=== PATIENT | female | born 1950 | race Caucasian/White ===

== ENCOUNTER 2019-12-15 14:32 | Outpatient (CLI) | payer MEDICARE, OTHER, SELFPAY ==
--- NOTE | 2019-12-15 14:42 | MM_ITS ---
WS: [id number] BILATERAL DIGITAL SCREENING MAMMOGRAPHY WITH CAD CLINICAL INFORMATION: SCREENING HISTORY: Screening mammogram. No current complaints. COMPARISON: August 20, 2017 TECHNIQUE: Bilateral CC and MLO views. FINDINGS: The breasts are composed of heterogeneous fibroglandular density tissue, which can limit the detectio n of small underlying mass lesions. No suspicious mass, asymmetry, calcifications, or architectural d istortion. No evidence of malignancy. Stable punctate calcifications MM/[place] [id number] IMPRESSION: BI-RADS: 2-Benign FOLLOW UP: 1 Year Follow-up Recommend return to annual screening mammography.
--- NOTE | 2019-12-15 15:36 | XR_ITS ---
WS: [id number] DEXA (DUAL ENERGY X-RAY ABSORPTIOMETRY) Bone mineral density was performed using a [employer] machine. HISTORY: ASYMPTOMATIC POST MENOPAUSAL COMPARISON: 08/20/2017 Total hip BMD: Left: 0.995 g/cm2. T score: -0.1 Z score: 0.9 Right: 0.962 g/cm2. T score: -0.4 Z score: 0.6 10 year probability of a major osteoporotic fracture is 9%. Compared to the prior study from 08/20/2017. Bilateral hips bone mineral density has decreased by 0.4%. XR/XR DEXA axial skeleton* [id number] IMPRESSION: NORMAL BONE MINERAL DENSITY based upon the WHO classification for females. No significant change within the bone mineral density of the hips since the erik or study.
== END 2019-12-15 14:33 | disposition home or self-care (01) ==
PROVIDERS: PCP Family Medicine; Visit Provider Family Medicine
DX: Z12.31 Encounter for screening mammogram for malignant neoplasm of breast (principal); Z78.0 Asymptomatic menopausal state
CPT/HCPCS: 77067; 77080

== ENCOUNTER 2020-03-01 19:45 | Emergency (ER) | payer MEDICARE, OTHER, SELFPAY ==
[2020-03-01 19:48] VITALS: BP 108/68; PULSE 82; RESP 18; TEMP 36.3; O2SAT 97; BMI 30.7
--- NOTE | 2020-03-01 21:20 | ED_ITS ---
HPI - Abdominal Pain General: Chief Complaint: Abdominal Pain Stated Complaint: abd pain Time Seen by Provider: 03/01/20 20:58 Source: patient Mode of arrival: ambulatory Limitations: no limitations History of Present Illness: HPI narrative: Izabel is a nice 70-year-old female who comes in complaining of a months worth of abdominal pain. She describes diffuse abdominal pain with alternating constipation and diarrhea. He has nausea but no vomiting. She is not noted any fevers or chills. Unaware of anything that makes her pain better or worse. She was seen in urgent care recently for this and was started on Cipro and Flagyl but she stated she stopped taking these because her symptoms were not getting better. She denies any chest pain or shortness of breath. She states she has had similar symptoms in the past and was told she had colitis. Patient has any blood in her stools or black tarry stools. Associated Symptoms: Reports constipation, diarrhea and nausea; Denies chills, coffee ground emesis, GI cramping, dysuria, fever(s), heartburn, hematochezia, hematuria, hematemesis, melena, syncope and vomiting Review of Systems Const: Denies: fever(s), chills, body aches, fatigue, malaise or diaphoresis Eyes: Denies: change in vision, blurry vision, photophobia, eye discomfort, eye discharge, eye redness or yellow eyes ENMT: Denies: throat pain, odynophagia, hoarseness, swelling of lips/tongue, ear or mastoid pain, ear discharge, change in hearing or nasal discharge Card: Denies: chest pain, palpitations, irregular heart rhythm, edema, lightheadedness, syncope, pre-syncope, dyspnea on exertion or orthopnea Resp: Denies: dyspnea, productive cough, non-productive cough, wheezing, hemoptysis or chest congestion GI: Reports: abdominal pain, nausea, diarrhea and constipation; Denies: vomiting, hematemesis, coffee ground emesis, heartburn, GI cramping, hematochezia or melena : Denies: flank pain, dysuria, urinary frequency, urinary urgency or hematuria Musc: Denies: neck pain, back pain, extremity pain, extremity swelling, joint pain, joint swelling, joint redness, joint warmth or joint stiffness Skin/Breast: Denies: rash, pruritus, erythema, skin pain or skin tenderness Neuro: Denies: headache(s), numbness in extremities, weakness in extremities, sensory changes, lack of coordination, difficulty walking, dizziness, vertigo, confusion, Slurred speech present or seizure-like activity Javi/Lymph: Denies: easy bruising, easy bleeding, petechiae, purpura or enlarged lymph nodes All/Imm: Denies: urticaria, throat swelling, tongue swelling, facial swelling or acute wheezing PFSH ED PFSH: Medical History Chronic back pain Hypertension Normal colonoscopy Social History Smoking and tobacco status: never smoked Physical Exam Const: COMMON NORMALS: no acute distress, patient oriented x3, no limitations and alert GENERAL APPEARANCE: cooperative HENMT: COMMON NORMALS: normocephalic, atraumatic, external ears normal, EAC's normal and Normal external nose present HEAD & SCALP: normal to inspection, normocephalic and atraumatic FACE & SINUS: normal facial exam and face symmetric NOSE: Normal external nose present and Normal nares present EXTERNAL EAR: Yes external ears normal EXTERNAL AUDITORY CANAL: EAC's normal MOUTH: Normal oral and palatal mucosa present, lip normal and tongue normal Eye: COMMON NORMALS: Equal, round and reactive pupils present and conjunctivae normal GENERAL EYE: appearance normal, both eyes and all related structures ALIGNMENT: Yes alignment normal PERIORBITAL: periorbital findings normal EYELID: eyelids normal CONJUNCTIVA: Yes conjunctivae normal SCLERA: sclerae normal PUPIL: Yes Equal, round and reactive pupils present Neck/C-Spine: COMMON NORMALS: full ROM, no lymphadenopathy, supple, no meningeal signs and no JVD GENERAL: Yes normal visual inspection and Yes trachea midline Chest: COMMONS NORMALS: normal inspection of the chest and normal palpation of entire chest wall Resp: COMMON NORMALS: normal respiratory effort, No retractions, No use of accessory muscles and clear to auscultation bilaterally EFFORT & INSPECTION: Yes able to speak in complete sentences and Yes symmetric chest movement AUSCULTATION: clear to auscultation bilaterally, no crackles, no rales, no rhonchi and no wheezes Cardio: COMMON NORMALS: no JVD, regular rate, regular rhythm, S1 normal heart sound present and S2 normal heart sound present RATE: regular rate RHYTHM: regular rhythm HEART SOUNDS: S1 normal heart sound present, S2 normal heart sound present, no click, no gallops, no murmurs and no rubs GI: COMMON NORMALS: Soft to palpation and No hepatosplenomegaly present PALPATION: Yes Soft to palpation, Yes Tenderness to palpation present (GI) (Mild diffusely), No Guarding due to palpation present (GI), No Rigid due to palpation, Yes No hepatosplenomegaly present, No Hernia present, No Palpable mass present and No Pulsatile mass present : COMMON NORMALS: Yes no CVA tenderness BLADDER/KIDNEY EXAM: Yes no CVA tenderness EXTERNAL FEMALE EXAM: No Hernia present Back/Pelvis: COMMON NORMALS: no CVA tenderness, thoracic and lumbar spine normal to inspection, no thoracic nor lumbar tenderness and thoraco-lumbar ROM normal Extremity: COMMON NORMALS: normal to inspection, full ROM, capillary refill normal, no joint enlargement, no clubbing, cyanosis or edema and no calf tenderness Neuro: COMMON NORMALS: patient oriented x3, CN's II-XII intact bilaterally, moves all extremities, no focal motor deficits and no sensory deficits noted SENSORIUM/ORIENTATION: Yes alert MENINGEAL SIGNS: Yes no meningeal signs SPEECH: speech normal Psych: COMMON NORMALS: mental status grossly normal, Normal thought process present, cooperative, normal affect, speech normal and activity/motor behavior normal SPEECH: Yes normal speech THOUGHT PROCESS: Normal thought process present Skin: COMMON NORMALS: no rashes or lesions noted, turgor normal, no jaundice, no petechiae and no mottling GENERAL SKIN EXAM: no rashes or lesions noted and turgor normal Course Vital Signs: Vital signs: Vital Signs Temperature 97.3 F L 03/01/20 19:48 Pulse Rate 65 03/01/20 21:53 Respiratory Rate 16 03/01/20 22:00 Blood Pressure 118/64 03/01/20 21:53 Pulse Oximetry 96 03/01/20 21:53 MDM - Abdominal Pain MDM Narrative: Medical decision making narrative: The patient is feeling be tter and has not vomited here. She is having diarrhea. CT scan shows no evidence of bowel obstruction, diverticulitis but does show a mild ileus. I believe this may pass with the patient just doing a clear liquid diet and bowel rest. The patient is going to receive 2 L of normal saline here before discharge. She is not orthostatic, near syncopal or show any sign of severe dehydration. I believe the protracted diarrhea over the past 2 months is likely the cause for her symptoms. I reviewed the case in full with Dr. Beth Hernandez who is agreed to have the patient rechecked by her or someone else in the office tomorrow. Patient understands she will need to return if she worsens. This time her abdomen is soft and shows no sign of peritonitis. She is able to keep fluids down at home but I believe this is been decreased because of her chronic nausea. I will send her home with nausea medication the patient understands she needs to increase her fluid intake. She agrees and understands she needs to follow-up with 1 of the doctors in the office tomorrow for recheck. Medical Records: Attestation: I reviewed the patient's medical records. Lab Data: Attestation: I reviewed the patient's lab results. Labs: Lab Results 03/01/20 03/01/20 03/01/20 Range/Units 21:01 21:01 22:03 WBC 5.5 (4.0-10.0) 10^3/ uL RBC 4.06 L (4.1-5.3) 10^6/u L Hgb 11.7 (11.5-15.3) g/dL Hct 38.2 (37.0-47.0) % MCV 94.1 (81-99) fL MCH 28.8 (28.0-34.0) pg MCHC 30.6 (30.0-36.0) g/dL RDW 12.4 (12.1-15.1) % Plt Count 264 (130-400) 10^3/c mm MPV 10.3 (7.4-10.4) fL Neut % (Auto) 54.7 % Lymph % (Auto) 30.2 % [place] % (Auto) 12.4 % Eos % (Auto) 2.0 % Baso % (Auto) 0.5 % Neut # (Auto) 3.01 (1.8-7.7) 10^3/u L Lymph # (Auto) 1.7 (0.8-4.8) 10^3/u L [place] # (Auto) 0.7 (0.2-0.9) 10^3/u L Eos # (Auto) 0.1 (0.0-0.8) 10^3/u L Baso # (Auto) 0.0 (0.0-0.1) 10^3/u L Nucleated RBC % (a uto) 0 % Nucleated RBCs # 0.0 /100WBC Sodium 135 L (136-145) mmol/L Potassium 3.9 (3.5-5.1) mmol/L Chloride 99 (98-107) mmol/L Carbon Dioxide 24 (22-29) mmol/L Anion Gap 15.9 (5-19) BUN 21 (8-23) mg/dL Creatinine 1.9 H (0.5-0.9) mg/dL GFR Calculation 26.2 L (90-130) mL/min Glucose 115 (65-115) mg/dL Calculated Osmolal ity 284 L (285-295) mOsm/k g Calcium 9.1 (8.5-10.5) mg/dL Total Bilirubin 0.2 (0.15-1.2) mg/dL AST 28 (0-32) U/L ALT 18 (0-33) U/L Alkaline Phosphata se 104 (35-105) IU/L Total Protein 6.5 L (6.6-8.7) g/dL Albumin 3.9 (3.5-5.2) g/dL Globulin 2.6 (1.3-4.6) g/dL Lipase 22 (13-60) U/L Urine Color Yellow (Yellow) Urine Appearance Clear (CLEAR) Urine pH 5 (5-7) Ur Specific Gravit y 1.015 (1.005-1.030) Urine Protein Neg (Negative) Urine Glucose (UA) Norm (Normal) Urine Ketones Negative (Negative) Urine Blood Neg (Negative) Urine Nitrate Negative (Negative) Urine Bilirubin Neg (Negative) Urine Urobilinogen Norm (Negative) mg/dL Ur Leukocyte Jazmin ase Negative (Negative) Imaging Data ^: CT Abd/Pel: Radiologist's impression: [address] [address] [address] Scan Report Signed Patient: Izabel Guillen Unit #: [id number] : 1950 Age/Sex: 70 / F ADM Date: 03/01/20 Loc: ER Room/Bed: Attending Dr: Ordering Provider/Ordering MD: Vivienne Calix DO Date of Service: 03/01/20 Procedure(s): CT abdomen pelvis wo con [id number] Accession Number(s): [id number] Report Number: [id number] PROCEDURE INFORMATION: Exam: CT Abdomen And Pelvis Without Contrast Exam date and time: 03/01/2020 10:02 PM Age: 70 years old Clinical indication: Abdominal pain; Prior surgery; Surgery type: Hyst, back TECHNIQUE: Imaging protocol: Computed tomography of the abdomen and pelvis without contrast. Radiation optimization: All CT scans at this facility use at least one of these dose optimization techniques: automated exposure control; mA and/or kV adjustment per patient size (includes targeted exams where dose is matched to clinical indication); or iterative reconstruction. COMPARISON: No relevant prior studies available. RADIATION DOSE METRICS: Total DLP (mGy-cm): 1020.34 FINDINGS: Lungs: A calcified granuloma seen in the right lung base posteriorly. Liver: Normal. No mass. Gallbladder and bile ducts: Normal. No calcified stones. No ductal dilation. Pancreas: Normal. No ductal dilation. Spleen: Multiple calcifications are seen within the spleen compatible with calcified granulomas. Adrenals: Normal. No mass. Kidneys and ureters: Normal. No hydronephrosis. Stomach and bowel: Nondilated fluid-filled loops of small bowel are seen, findings could represent ileus. Appendix: The appendix is not seen in today's examination. There are no inflammatory changes seen to suggest appendicitis. Intraperitoneal space: Unremarkable. No free air. No significant fluid collection. Vasculature: Unremarkable. No abdominal aortic aneurysm. Lymph nodes: Unremarkable. No enlarged lymph nodes. Bladder: Unremarkable as visualized. Reproductive: Status post hysterectomy. Bones/joints: Status post PLIF L3-L4 and anterior fusion L5-S1. Soft tissues: Unremarkable. CT/CT abdomen pelvis wo con [id number] IMPRESSION: Fluid-filled loops of small bowel are present, findings could represent ileus. Radiation Dose CTDIVOL = (mGy): DLP = 1020.34 (mGy-cm) Dictated By: Junior Mauricio MD Signed By: Junior Mauricio MD Signed Date/Time: 03/01/202236 DD/ 35 Discharge Plan Discharge Patient Disposition: Home Clinical Impression: Acute dehydration Abdominal pain Qualifiers: Abdominal location: generalized Qualified Code(s): R10.84 - Generalized abdominal pain Diarrhea Qualifiers: Diarrhea type: infectious Qualified Code(s): A09 - Infectious gastroenteritis and colitis, unspecified Condition: Stable Prescriptions: New Zofran 4 mg tablet 4 mg PO Q6H PRN (Reason: nausea and vomiting) Qty: 20 RF: 0 No Action dexamethasone sodium phosphate 4 mg/mL solution 8 mg IM ONCE Qty: 2 RF: 0 metronidazole 500 mg tablet 500 mg PO Q12H 7 Days Qty: 14 RF: 0 ciprofloxacin HCl 500 mg tablet 500 mg PO Q12H 7 Days Qty: 14 RF: 0 omeprazole 20 mg capsule,delayed release(DR/EC) 20 mg PO DAILY 14 Days Qty: 14 RF: 0 lisinopril 10 mg tablet 10 mg PO DAILY RF: 0 levothyroxine 125 mcg capsule 125 mcg PO DAILY RF: 0 hydrocodone-acetaminophen 5-300 mg tablet 1 tab PO Q4H PRNRF: 0 Discharge Orders: Discharge Order (Routine); Ordered 03/01/20 Ordered By: Vivienne Calix Referrals: Katy Villafuerte MD [Primary Care Provider] - 1-3 days Discharge Diet: Advance as tolerated and Clear Liquid Discharge Activity: Limit activity as instructed Patient Instructions: Dehydration (ED), Acute Diarrhea (ED), Abdominal Pain (ED) Activity Restrictions/Additional Instructions: Please return to the ER immediately for any of the signs or symptoms listed on your discharge instruction sheets, worsening/changing of your symptoms, you are not getting better as quickly as expected, or for ANY other cause or concerns. Follow a clear liquid diet but push fluids and hold off any solid food until your pain is better. Call tomorrow for an appointment to be seen by 1 of the other physicians at Dr. Villafuerte's clinic as I have been assured by the on-call physician that she will be seen in recheck. Return to the ER for fever, increased pain, vomiting, blood in your stools, or for any other cause for concern. If for any reason you are not seen tomorrow or the next day in their clinic return to the ER for recheck of your labs. Coding Level of Care Code ED Underwriting Manager for Chg Fwd Exam Comprehensive
[2020-03-01 21:21] VITALS: RESP 18
[2020-03-01] MEDS: sodium chloride 0.9% 1,000 ML 999 ML IV ×2 (21:21→22:50)
[2020-03-01] MEDS: morphine 4 mg/mL SDV 1 mL IVP (21:21)
[2020-03-01] MEDS: ondansetron 2 mg/ML SDV 2 mL 4 MG IVP (21:21)
[2020-03-01 21:31] LABS: Basophils % 0.5 %; Eosinophils # 0.1 10^3/uL (0.0-0.8); Hematocrit 38.2 % (37.0-47.0); Hemoglobin 11.7 g/dL (11.5-15.3); Lymphocytes # 1.7 10^3/uL (0.8-4.8); Lymphocytes % 30.2 %; Mean Corpuscular HGB Conc 30.6 g/dL (30.0-36.0); Mean Corpuscular Hemoglobin 28.8 pg (28.0-34.0); Mean Corpuscular Volume 94.1 fL (81-99); Mean Platelet Volume 10.3 fL (7.4-10.4); Monocytes # 0.7 10^3/uL (0.2-0.9); Monocytes % 12.4 %; Neutrophils # 3.01 10^3/uL (1.8-7.7); Neutrophils % 54.7 %; Nucleated Red Blood Cells % 0 %; Platelet Count 264 10^3/cmm (130-400); Red Blood Count 4.06 10^6/uL (4.1-5.3); Red Cell Distribution Width 12.4 % (12.1-15.1); White Blood Count 5.5 10^3/uL (4.0-10.0)
[2020-03-01 21:53] VITALS: BP 118/64; PULSE 65; RESP 16; O2SAT 96
[2020-03-01 21:56] LABS: Alanine Aminotransferase 18 U/L (0-33); Albumin Level 3.9 g/dL (3.5-5.2); Alkaline Phosphatase 104 IU/L (35-105); Aspartate Amino Transferase 28 U/L (0-32); Blood Urea Nitrogen 21 mg/dL (8-23); Calcium 9.1 mg/dL (8.5-10.5); Carbon Dioxide 24 mmol/L (22-29); Chloride 99 mmol/L (98-107); Globulin 2.6 g/dL (1.3-4.6); Glomerular Filtration Rate 26.2 mL/min (90-130); Glucose 115 mg/dL (65-115); Lipase 22 U/L (13-60); Osmolality Calculated 284 mOsm/kg (285-295); Sodium 135 mmol/L (136-145); Total Bilirubin 0.2 mg/dL (0.15-1.2); Total Protein 6.5 g/dL (6.6-8.7)
[2020-03-01 21:57] LABS: Anion Gap 15.9 (5-19); Potassium 3.9 mmol/L (3.5-5.1)
--- NOTE | 2020-03-01 21:59 | CTR_ITS ---
PROCEDURE INFORMATION: Exam: CT Abdomen And Pelvis Without Contrast Exam date and time: 03/01/2020 10:02 PM Age: 70 years old Clinical indication: Abdominal pain; Prior surgery; Surgery type: Hyst, back TECHNIQUE: Imaging protocol: Computed tomography of the abdomen and pelvis without contrast. Radiation optimization: All CT scans at this facility use at least one of these dose optimization techniques: automated exposure control; mA and/or kV adjustment per patient size (includes targeted exams where dose is matched to clinical indication); or iterative reconstruction. COMPARISON: No relevant prior studies available. RADIATION DOSE METRICS: Total DLP (mGy-cm): 1020.34 FINDINGS: Lungs: A calcified granuloma seen in the right lung base posteriorly. Liver: Normal. No mass. Gallbladder and bile ducts: Normal. No calcified stones. No ductal dilation. Pancreas: Normal. No ductal dilation. Spleen: Multiple calcifications are seen within the spleen compatible with calcified granulomas. Adrenals: Normal. No mass. Kidneys and ureters: Normal. No hydronephrosis. Stomach and bowel: Nondilated fluid-filled loops of small bowel are seen, findings could represent ileus. Appendix: The appendix is not seen in today's examination. There are no inflammatory changes seen to suggest appendicitis. Intraperitoneal space: Unremarkable. No free air. No significant fluid collection. Vasculature: Unremarkable. No abdominal aortic aneurysm. Lymph nodes: Unremarkable. No enlarged lymph nodes. Bladder: Unremarkable as visualized. Reproductive: Status post hysterectomy. Bones/joints: Status post PLIF L3-L4 and anterior fusion L5-S1. Soft tissues: Unremarkable. CT/CT abdomen pelvis wo con [id number] IMPRESSION: Fluid-filled loops of small bowel are present, findings could represent ileus. Radiation Dose CTDIVOL = (mGy): DLP = 1020.34 (mGy-cm)
--- NOTE | 2020-03-01 21:59 | PC.NURSE ---
patient ambulated to bathroom with clean catch package with instructions given by nurse
[2020-03-01 22:00] VITALS: RESP 16
[2020-03-01 22:22] LABS: Add Urine Microscopic? NO
[2020-03-01 22:31] LABS: Bilirubin Urine Neg (Negative); Blood Urine Neg (Negative); Glucose Urine UA Norm (Normal); Ketones Urine Negative (Negative); Leukocyte Esterase Urine Negative (Negative); Nitrate Urine Negative (Negative); Protein Urine Neg (Negative); Specific Gravity, Urine 1.015 (1.005-1.030); Urine Appearance Clear (CLEAR); Urine Color Yellow (Yellow); Urobilinogen Urine Norm (Negative); pH Urine 5 (5-7)
[2020-03-01 23:32] VITALS: BP 123/78; PULSE 79; RESP 16; O2SAT 97
[2020-03-01 23:41] VITALS: BP 108/73; PULSE 80; RESP 16; O2SAT 98
[2020-03-02] MEDS: sodium chloride 0.9% 1,000 ML 999 ML IV (00:22)
[2020-03-02] MEDS: ondansetron 2 mg/ML SDV 2 mL 4 MG IVP (00:22)
[2020-03-02 00:56] VITALS: BP 123/69; PULSE 78; RESP 18; O2SAT 99
[2020-03-02 01:49] VITALS: BP 125/82; PULSE 88; RESP 18; TEMP 36.7; O2SAT 97
== END 2020-03-02 01:52 | disposition home or self-care (01) ==
PROVIDERS: Emergency Provider Emergency Medicine; PCP Family Medicine
DX: R10.84 Generalized abdominal pain (principal); A09 Infectious gastroenteritis and colitis, unspecified; E86.0 Dehydration; I10 Essential (primary) hypertension
CPT/HCPCS: 12345; 74176; 80053; 81003; 83690; 85025; 96361; 96374; 96375; 96376; 99283; 99284; J2270; J2405; J7030

== ENCOUNTER 2020-03-23 16:18 | Outpatient (CLI) | payer MEDICARE, OTHER, SELFPAY ==
--- NOTE | 2020-03-23 16:25 | XRR_ITS ---
PROCEDURE INFORMATION: Exam: XR Abdomen, 1 View Exam date and time: 03/23/2020 4:26 PM Age: 70 years old Clinical indication: Patient status: Conscious; Pain: Abdominal pain all over, n/v 1 month; Prior surgery; Surgery date: 6+ months; Surgery type: Hyst; Additional info: Nausea, abdominal pain TECHNIQUE: Imaging protocol: XR of the abdomen. Views: Frontal supine view of the abdomen. 1 View. COMPARISON: CT abdomen pelvis wo con [id number] 03/01/2020 10:12 PM FINDINGS: Gastrointestinal tract: Scattered gas in normal caliber small and large bowel. Bones/joints: Fusion hardware in the lumbar spine, L5-S1 level, and right sacroiliac joint. XR/XR KUB [id number] IMPRESSION: Unremarkable bowel gas pattern.
== END 2020-03-23 16:19 | disposition home or self-care (01) ==
LOC: RAD 16:22
PROVIDERS: PCP Family Medicine; Visit Provider Nurse Practitioner Family
DX: R11.0 Nausea (principal); R10.9 Unspecified abdominal pain
CPT/HCPCS: 74018

== ENCOUNTER 2020-05-16 13:33 | Emergency (ER) | payer MEDICARE, OTHER, SELFPAY ==
[2020-05-16 13:37] VITALS: BP 175/83; PULSE 91; RESP 18; TEMP 36.2; O2SAT 95; BMI 30.7
--- NOTE | 2020-05-16 13:40 | XR_ITS ---
WS: [id number] Left knee, 3 views, 05/16/2020 Clinical Data: injury Comparison: None. Findings: No fractures or dislocations are seen. There is medial joint compartment narrowing. There is an anter ior superior patellar spur. The patella is intact. The soft tissues are unremarkable. XR/XR knee LT 3V* [id number] Impression: Moderate osteoarthritis with medial joint compartment narrowing and a patellar spur.
--- NOTE | 2020-05-16 14:25 | W.ED.EXTPRO ---
HPI - Extremity Problem General: Chief complaint: Extremity Injury, Lower Stated complaint: L KNEE PAIN Time Seen by Provider: 05/16/20 14:04 Source: patient Mode of arrival: ambulatory Limitations: no limitations History of Present Illness: HPI Narrative: Pleasant 70-year-old female patient presents to the emergency department with left knee pain. She reports completed dose of steroids approximately 2 weeks ago, reports pain went away and now has returned. She reports NSAIDs are upsetting her stomach, has attempted Biofreeze, Voltaren gel, ice alternating with warm moist heat as well as Lidoderm patches without improvement. She reports pain is worse with movement. Has an appointment with orthopedic surgeon Dr. Combs scheduled for May 31. She states cannot wait any longer as pain is too much to bear. She reports pain for 3 months to the left knee, reports no trauma or injury. Prior knee replacement to the right knee several years ago. She is requesting a knee injection upon exam. MD Complaint: joint swelling and joint pain (left knee) Onset (ago): month(s) (3) Pain Consistency: intermittent Location: left, lower extremity and knee Quality: aching, dull and constant Radiation: none Relieving factors: immobilization and rest Exacerbating factors: weight bearing Associated symptoms: Deny chest pain, fever(s) or rash Review of Systems General: Reports: 10 or more systems reviewed and unremarkable except in HPI and below Const: Denies: fever(s), chills or diaphoresis Eyes: Denies: blurry vision or eye redness ENMT: Denies: throat pain, dental pain or disequilibrium Card: Denies: chest pain, palpitations or irregular heart rhythm Resp: Denies: dyspnea, productive cough, non-productive cough or wheezing GI: Denies: abdominal pain, nausea or vomiting : Denies: difficulty voiding or dysuria Musc: Reports: joint pain (left knee); Denies: neck pain or back pain Skin/Breast: Denies: rash or pruritus Neuro: Denies: headache(s), weakness in extremities or behavioral changes Psych: Denies: anxiety or depression Javi/Lymph: Denies: easy bruising PFS ED PFSH: Medical History (Updated 05/16/20 @ 15:08 by ASHLEY Fuentes) Chronic back pain Hypertension Normal colonoscopy Social History Smoking and tobacco status: never smoked Physical Exam Const: COMMON NORMALS: no acute distress, patient oriented x3, healthy appearing and alert GENERAL APPEARANCE: cooperative, comfortable and well hydrated HENMT: COMMON NORMALS: normocephalic, Normal external nose present and moist oral mucous membranes HEAD & SCALP: normocephalic NOSE: Normal external nose present Eye: COMMON NORMALS: Equal, round and reactive pupils present and EOMs intact bilaterally GENERAL EYE: appearance normal, both eyes and all related structures PUPIL: Yes Equal, round and reactive pupils present Neck/C-Spine: COMMON NORMALS: full ROM and no lymphadenopathy GENERAL: Yes normal visual inspection and Yes trachea midline CERVICAL SPINE: Yes cervical ROM normal Lymph: LYMPHATIC: no lymphadenopathy noted Chest: COMMONS NORMALS: normal inspection of the chest Resp: COMMON NORMALS: normal respiratory effort and clear to auscultation bilaterally AUSCULTATION: clear to auscultation bilaterally Cardio: COMMON NORMALS: regular rhythm, S1 normal heart sound present and S2 normal heart sound present RHYTHM: regular rhythm HEART SOUNDS: S1 normal heart sound present and S2 normal heart sound present GI: COMMON NORMALS: Soft to palpation and non-tender INSPECTION: Yes normal to inspection PALPATION: Yes Soft to palpation : COMMON NORMALS: Yes no CVA tenderness BLADDER/KIDNEY EXAM: Yes no CVA tenderness Back/Pelvis: COMMON NORMALS: no CVA tenderness and thoracic and lumbar spine normal to inspection Extremity: COMMON NORMALS: normal to inspection, full ROM, capillary refill normal, no clubbing, cyanosis or edema, no calf tenderness and no pedal edema GENERAL: Yes normal exam except as noted LEFT LOWER EXTREMITY: Yes knee joint Left knee: Yes inspection (Without erythema, mild edema anteriorly distal patella), Yes palpation, Yes ROM (Limited flexion, full extension), Yes neurovascular exam (Distally intact) and Yes special tests Left knee special tests: Anterior drawer sign: Negative, Anterior Dalila test: Negative, Posterior Dalila test: Positive, Valgus stress test: Positive and Varus stress test: Positive Neuro: COMMON NORMALS: patient oriented x3 and no focal motor deficits SENSORIUM/ORIENTATION: Yes alert Psych: COMMON NORMALS: mental status grossly normal, Normal thought process present, cooperative, normal affect, speech normal and activity/motor behavior normal ACTIVITY/MOTOR BEHAVIOR: Yes appropriate eye contact SPEECH: Yes normal speech THOUGHT PROCESS: Normal thought process present Skin: COMMON NORMALS: no rashes or lesions noted, no wounds, turgor normal, no petechiae and no mottling GENERAL SKIN EXAM: no rashes or lesions noted and turgor normal Procedures Joint Aspiration/Injection Joint Asp./Inject. 1: Time Out Performed: Yes Side of body: left Skin Prep: Povidone-Iodine1% Local Anesthetic: lidocaine 1% Amount of anesthesia used (mL): 4 Medication Injected, if any: Triamcinolone Acetate (40 mg) Amount of medication injected (mL): 1 Patient Tolerated Procedure: well Complications: none Course ED course: 70-year-old female patient presents to the emergency department with left knee pain x3 months. Oral steroids did help, pain returned, she is requesting left knee injection upon exam, case discussed with Dr. Wilhelm as intra-articular injections are not part of an ED visit. Patient reports must have some type of relief and does not wish to use narcotics, NSAIDs causing stomach upset. She has attempted [id number] use of several medications without relief. Patient is aware infection/septic joint can occur despite sterility of procedure. She is willing to proceed, risk and benefits were discussed including septic joint, reaction to steroids, reaction to lidocaine, flushing, dermatological changes, and in some cases , she is willing to proceed, states anything will be helpful at this point. Vital Signs: Vital signs: Vital Signs Temperature 97.9 F 05/16/20 15:28 Pulse Rate 68 05/16/20 15:28 Respiratory Rate 18 05/16/20 15:28 Blood Pressure 124/89 05/16/20 15:28 Pulse Oximetry 98 05/16/20 15:28 MDM - Extremity (Nontraumatic) Imaging Data^: Xray Ortho: Radiologist's impression: [facility] [address] [place] [address] XRay Report Signed Patient: Izabel Guillen #: [id number] : 1Acct#:[id number] Age/Sex: 70 / FADM Date: 05/16/20 [facility] Attending Dr: Ordering Provider/Ordering MD: Glenroy Ryan MD Date of Service: 05/16/20 Procedure(s): XR knee LT 3V* [id number] Accession Number(s): [id number] Report Number: [id number] WS: [id number] Left knee, 3 views, 05/16/2020 Clinical Data: injury Comparison: None. Findings: No fractures or dislocations are seen. There is medial joint compartment narrowing. There is an anterior superior patellar spur. The patella is intact. The soft tissues are unremarkable. XR/XR knee LT 3V* [id number] Impression: Moderate osteoarthritis with medial joint compartment narrowing and a patellar spur. Dictated By:Rosmery Rodarte MD Signed By:Rosmery Rodarte MDSigned Date/Time:05/16/201408 DD/ 07 Discharge Plan Discharge Patient Disposition: Home Clinical Impression: Localized osteoarthritis of knee Knee pain, left Qualifiers: Chronicity: acute Qualified Code(s): M25.562 - Pain in left knee Condition: Stable Prescriptions: New Voltaren 1 % gel 4 g topical QID Qty: 200 RF: 0 No Action omeprazole 20 mg capsule,delayed release(DR/EC) 20 mg PO DAILY 14 Days Qty: 14 RF: 0 prednisone 20 mg tablet 20 mg PO DAILY 5 Days Qty: 5 RF: 0 lisinopril 10 mg tablet 10 mg PO DAILY RF: 0 levothyroxine 125 mcg capsule 125 mcg PO DAILY RF: 0 hydrocodone-acetaminophen 5-300 mg tablet 1 tab PO Q4H PRNRF: 0 Discharge Orders: Discharge ED (Routine); Ordered 05/16/20 Ordered By: Karin Harris Referrals: NENA ORO FNP [Primary Care Provider] - Discharge Diet: Usual diet Discharge Activity: Limit activity as instructed Patient Instructions: Osteoarthritis (ED), Knee Pain (ED) Activity Restrictions/Additional Instructions: Return to the emergency department if you develop left knee redness, swelling or drainage. Fever or chills with redness of the left knee. Cool compresses for the next 48 hours, do not submerge knee in bath water for 2 days. May shower tomorrow, pat dry. Take it easy over the next 48 hours, advance activity as tolerated in 72 hours pending left knee pain has improved. Follow-up with your primary care provider/Dr. Combs as scheduled, keep your appointment even if left knee is improved May continue Tylenol as needed for pain orally. May continue Biofreeze and Lidoderm patches as needed. Coding Level of Care Code ED Technical Professional for Radhika Fwd Exam Comprehensive
[2020-05-16] MEDS: triamcinolone 40 mg/mL SDV IM (14:57)
[2020-05-16] MEDS: lidocaine 1% INJ 20 mL INJECTION (14:59)
[2020-05-16 15:28] VITALS: BP 124/89; PULSE 68; RESP 18; TEMP 36.6; O2SAT 98
== END 2020-05-16 15:29 | disposition home or self-care (01) ==
PROVIDERS: Emergency Provider Nurse Practitioner Family; PCP Nurse Practitioner Family
DX: M17.12 Unilateral primary osteoarthritis, left knee (principal); I10 Essential (primary) hypertension
CPT/HCPCS: 12345; 73562; 96372; 96375; 99281; 99283; J3301

== ENCOUNTER 2020-06-21 13:50 | Outpatient (CLI) | payer MEDICARE, OTHER, SELFPAY ==
--- NOTE | 2020-06-21 13:59 | XR_ITS ---
WS: [id number] LEFT ANKLE: 3 VIEW(S) TECHNIQUE: AP, oblique(s) and lateral. HISTORY: LEFT ANKLE PAIN COMPARISON: None available. Indeterminate but highly suspicious for an oblique fracture in the distal fibula. Fracture does not e xtend completely through the fibula but there is a lucency distally where there is a moderate amount of soft tissue edema. No significant degenerative changes at the joint spaces. Moderate soft tissue edema laterally. There is also small joint effusion. XR/XR ankle LT min 3V* [id number] IMPRESSION: 1. Suspicious for nondisplaced fracture distal fibula. 2. Moderate soft tissue edema laterally.
== END 2020-06-21 13:51 | disposition home or self-care (01) ==
PROVIDERS: PCP Nurse Practitioner Family; Visit Provider Nurse Practitioner Family
DX: M25.572 Pain in left ankle and joints of left foot (principal); R60.0 Localized edema
CPT/HCPCS: 73610

== ENCOUNTER 2020-06-25 14:57 | Outpatient (CLI) | payer MEDICARE, OTHER, SELFPAY | END 2020-06-25 14:58 | disposition home or self-care (01) | LOC: SPT 14:58 | PROVIDERS: PCP Nurse Practitioner Family; Visit Provider Podiatrist Foot & Ankle Surgery | DX: Z46.89 Encounter for fitting and adjustment of other specified devices (principal); S82.832D Other fracture of upper and lower end of left fibula, subsequent encounter for closed fracture with routine healing; X58.XXXD Exposure to other specified factors, subsequent encounter | CPT/HCPCS: 97760; L4361 ==

== ENCOUNTER → 2020-07-09 14:50 | Outpatient (BNVA) | payer MEDICARE, OTHER, SELFPAY | PROVIDERS: PCP Nurse Practitioner Family; Visit Provider Podiatrist Foot & Ankle Surgery | DX: S82.892A Other fracture of left lower leg, initial encounter for closed fracture (principal); S82.832A Other fracture of upper and lower end of left fibula, initial encounter for closed fracture | CPT/HCPCS: 73610 ==

== ENCOUNTER 2021-02-14 15:15 | Outpatient (CLI) | payer MEDICARE, OTHER, SELFPAY ==
--- NOTE | 2021-02-14 15:27 | XR_ITS ---
WS: [id number] Lumbar spine, 3 views, 02/14/2021 Clinical Data: BACK PAIN Comparison: Lateral lumbar spine, 03/30/2012. Findings: The patient has had a posterior lumbar fusion of L3-L4 with connecting rods and a transverse band. Th ere is artificial disc material at L3-L4, L4-L5 and L5-S1. There is also a bony fusion bilaterally fr om L3 through L5. There is an anterior fusion of L5-S1. There are 2 cages extending from the right sa sulema into the right ilium diffuse the right SI joint. There is osteoarthritic change of the lumbar vertebral bodies L1-L3. No compression fractures are see n. The transverse processes at L1 and L2 are unremarkable. The left SI joint is normal. XR/XR lumbar spine 2-3V* [id number] Impression: 1. Posterior lumbar fusion and bony fusion at L3-L4. 2. Anterior lumbar fusion L5-S1. 3. Fusion of the right SI joint. 4. Artificial disc material at L3-L4 through L5-S1.
== END 2021-02-14 15:16 | disposition home or self-care (01) ==
LOC: RAD 15:25
PROVIDERS: PCP Nurse Practitioner Family; Visit Provider Nurse Practitioner Family
DX: M54.5 Low back pain (principal); M43.26 Fusion of spine, lumbar region
CPT/HCPCS: 72100

== ENCOUNTER 2021-10-11 12:43 | Outpatient (CLI) | payer MEDICARE, OTHER, SELFPAY ==
--- NOTE | 2021-10-11 13:13 | MM_ITS ---
WS: [id number] BILATERAL 3D TOMOSYNTHESIS DIGITAL SCREENING MAMMOGRAPHY WITH CAD CLINICAL INFORMATION: SCREENING HISTORY: Screening mammogram. No current complaints. COMPARISON: December 15, 2019 TECHNIQUE: Bilateral CC and MLO views. FINDINGS: Scattered fibroglandular densities bilaterally. Vascular calcification. Punctate and lucent centered calcifications. No suspicious focal mass, asymmetry, calcifications, or architectural distortion. No evidence of malignancy. MM/[place] [id number] IMPRESSION: BI-RADS: 2-Benign FOLLOW UP: 1 Year Follow-up Recommend return to annual screening mammography.
== END 2021-10-11 12:44 | disposition home or self-care (01) ==
LOC: RAD 12:48
PROVIDERS: PCP Nurse Practitioner Family; Visit Provider Nurse Practitioner Family
DX: Z12.31 Encounter for screening mammogram for malignant neoplasm of breast (principal)
CPT/HCPCS: 77063; 77067

== ENCOUNTER → 2022-09-29 15:20 | Outpatient (BNVA) | payer MEDICARE, OTHER, SELFPAY | PROVIDERS: PCP Nurse Practitioner Family; Visit Provider Student in an Organized Health Care Education/Training Program | DX: M17.12 Unilateral primary osteoarthritis, left knee (principal) | CPT/HCPCS: 20610; 73560; 73565; 99204; J1100; J2795; J3301 ==

== ENCOUNTER → 2022-12-02 12:54 | Outpatient (BNVA) | payer MEDICARE, OTHER, SELFPAY | PROVIDERS: PCP Nurse Practitioner Family; Visit Provider Physician Assistant | DX: M62.830 Muscle spasm of back (principal); M54.50 Low back pain, unspecified | CPT/HCPCS: 72110; 99203 ==

== ENCOUNTER 2023-01-14 14:02 | Outpatient (CLI) | payer MEDICARE, OTHER, SELFPAY ==
--- NOTE | 2023-01-14 14:30 | MR_ITS ---
WS: [id number] MRI LUMBAR SPINE NONCONTRAST TECHNIQUE: Sagittal T1, T2 and STIR imaging. Axial T1 and T2 imaging. CLINICAL INFORMATION: lower back pa COMPARISON: MRI 2016 FINDINGS: Mild lumbar curve. Reversal normal lumbar lordosis. No high-grade central canal narrowing. No acute c ompression fractures. Postoperative changes pedicle screw fixation L3-L4 is new since 2016. Associate d laminectomy defects. Interbody fusion L3-L4 L4-L5. Anterior plate and screw fixation L5-S1. L1-L2: [id number]-gq-qpcsbuqm arthropathy. Spinal canal and foramen are patent. L2-L3: Mild disc osteophytic ridging. Mild LEFT and no significant RIGHT foraminal narrowing. L3-L4: Interbody fusion. Spinal canal and foramen are patent. Laminectomy defects. L4-L5: Prior interbody fusion. RIGHT hemilaminectomy. Mild RIGHT and no significant LEFT foraminal na rrowing. Moderate facet arthropathy. L5-S1: Prior postoperative changes anterior plate and screw fixation. Spinal canal and foramen are pa tent. Moderate facet arthropathy. Partially visualized RIGHT sacroiliac fixation. Dorsal lateral bone graft material at L3-L4. Tiny RIG HT renal cyst. Small LEFT renal cyst. Visualized pelvic bony structures: Normal. Paravertebral soft tissues: Normal. MR/MR lumbar spine wo con* [id number] IMPRESSION: 1. Pedicle screw fixation L3-L4 with interbody fusion and dorsal lateral bone graft material. Prior interbody fusion L4-L5 and anterior plate and screw fixat ion L5-S1. 2. No significant central canal stenosis. 3. Mild RIGHT L4-L5 bony foraminal narrowing. 4. Moderate facet arthropathy L4-L5 and L5-S1. 5. Partially visualized RIGHT sacroiliac fusion.
== END 2023-01-14 14:03 | disposition home or self-care (01) ==
PROVIDERS: PCP Nurse Practitioner Family; Visit Provider Physician Assistant
DX: M54.50 Low back pain, unspecified (principal); Z98.1 Arthrodesis status; M47.817 Spondylosis without myelopathy or radiculopathy, lumbosacral region; M48.061 Spinal stenosis, lumbar region without neurogenic claudication
CPT/HCPCS: 72148

== ENCOUNTER → 2023-04-02 12:54 | Outpatient (BNVA) | payer MEDICARE, OTHER, SELFPAY | PROVIDERS: PCP Nurse Practitioner Family; Visit Provider Student in an Organized Health Care Education/Training Program | DX: M17.12 Unilateral primary osteoarthritis, left knee (principal) | CPT/HCPCS: 20610; 99213; J3301 ==

== ENCOUNTER 2023-04-17 10:34 | Emergency (ER) | payer MEDICARE, OTHER, SELFPAY ==
[2023-04-17 10:49] VITALS: BP 152/89; PULSE 84; RESP 16; TEMP 36.6; O2SAT 97; BMI 29.0
--- NOTE | 2023-04-17 11:09 | W.ED.BACK ---
HPI - Back Pain/Injury General: Chief Complaint: Back Pain/Injury Stated Complaint: Back pain Time Seen by Provider: 04/17/23 10:59 Source: patient Mode of arrival: ambulatory Limitations: no limitations History of Present Illness: Patient is a 73-year-old female who presents to ED today with complaint of right-sided lower back pain that has been present over the past 3 days or so. Patient states she has chronic back pain and sees Dr. Hernandez for pain management. She states she takes hydrocodone daily and also has hydromorphone as needed. She takes a muscle relaxer as well daily. Patient states she recently saw a chiropractor who told her it was her right SI joint. Patient has no radicular pain at this time. No saddle anesthesia. No issues with bowel/bladder. She has been treating with OTC Voltaren gel, Salonpas, heat with fairly good relief. Pain is worse with movement/lifting. MD elicited complaint: back pain Pertinent past history: prior back pain Onset (ago): day(s) (3 days ago) Timing: constant Severity: moderate Similar Symptoms Previously: No Location: right lower back Radiation: none Exacerbating factors: movement and lifting Relieving factors: other (OTC therapies/heat) Associated symptoms: Reports no associated symptoms; Deny abdominal pain, chills, difficulty walking, dysuria, fatigue, fever(s) or urinary urgency Treatments prior to arrival: heat therapy, NSAIDS and prescription analgesics Work related injury: No Review of Systems Const: Denies: fever(s), chills, body aches, fatigue or malaise Card: Denies: chest pain Resp: Denies: dyspnea GI: Denies: abdominal pain : Denies: flank pain, difficulty voiding, dysuria, urinary frequency, urinary urgency or urinary hesitancy Musc: Reports: back pain; Denies: neck pain, extremity pain, extremity swelling, joint pain, joint swelling, joint redness, joint warmth, joint stiffness, limited range of motion, muscle cramps or muscle weakness Skin/Breast: Denies: rash Neuro: Denies: numbness in extremities, weakness in extremities, sensory changes or difficulty walking PFS ED PFSH: Medical History Chronic back pain Hypertension Normal colonoscopy Recurrent UTI Social History Smoking and tobacco/nicotine status: never used tobacco/nicotine Alcohol intake: never Physical Exam Const: COMMON NORMALS: no acute distress, average body habitus, patient oriented x3, no limitations, healthy appearing, alert and well nourished GENERAL APPEARANCE: cooperative Chest: COMMONS NORMALS: normal inspection of the chest Resp: COMMON NORMALS: normal respiratory effort and clear to auscultation bilaterally AUSCULTATION: clear to auscultation bilaterally Cardio: COMMON NORMALS: regular rate and regular rhythm RATE: regular rate RHYTHM: regular rhythm GI: COMMON NORMALS: Normal to inspection, nondistended, normoactive bowel sounds present, Soft to palpation, non-tender and no masses PALPATION: Yes Soft to palpation : COMMON NORMALS: Yes no CVA tenderness BLADDER/KIDNEY EXAM: Yes no CVA tenderness Back/Pelvis: COMMON NORMALS: no CVA tenderness, thoracic and lumbar spine normal to inspection, no thoracic nor lumbar tenderness, thoraco-lumbar ROM normal and straight leg raise negative bilaterally THORACIC SPINE/UPPER BACK: Yes normal to inspection, No thoracic spinal tenderness, No paraspinal muscle tenderness and No paraspinal muscle spasm LUMBAR SPINE/LOWER BACK: No lumbar spinal tenderness, No paraspinal muscle tenderness and No paraspinal muscle spasm PELVIS: Yes buttocks normal SACROILIAC JOINTS: Yes SI joint(s) abnormal SI joint details: tender to palpation (right) SACRUM: no tenderness COCCYX: no tenderness Extremity: COMMON NORMALS: normal to inspection, full ROM, capillary refill normal, no joint enlargement, no clubbing, cyanosis or edema, no calf tenderness and no pedal edema GENERAL: Yes normal exam except as noted Neuro: COMMON NORMALS: patient oriented x3, moves all extremities, no focal motor deficits and no sensory deficits noted SENSORIUM/ORIENTATION: Yes alert MOTOR EXAM: 5/5 motor strength present throughout Skin: COMMON NORMALS: no rashes or lesions noted GENERAL SKIN EXAM: no rashes or lesions noted Course Vital Signs: Vital signs: Vital Signs Temperature 97.8 F 04/17/23 10:49 Pulse Rate 84 04/17/23 10:49 Respiratory Rate 16 04/17/23 10:49 Blood Pressure 152/89 04/17/23 10:49 Pulse Oximetry 97 04/17/23 10:49 Oxygen Delivery Me thod Room Air 11/03/23 10:49 MDM - Back Pain/Injury Medical Decision Making Patient already takes opiate pain medications as well as muscle relaxers from her pain management provider. She also takes naproxen daily. We will give her a shot of steroids here and place her on a steroid taper. Recommend she follow-up with primary care or her pain management provider for further evaluation/treatment if pain persists. Return precautions discussed with patient. No radiology studies performed this visit Discharge Plan Discharge Patient Disposition: Home Clinical Impression: Sacroiliac joint pain Condition: Stable Prescriptions: New Medrol (Bull) 4 mg tablets,dose pack See Rx Instructions .ROUTE .COMPLEX Qty: 21 0RF Rx Instructions: orally per package directions Discontinued prednisone 20 mg tablet 20 mg PO DAILY 5 Days Qty: 5 0RF No Action (DME) CAM walker See Rx Instructions .Route .MEDSUPPLY Qty: 1 0RF Rx Instructions: As directed diclofenac sodium [Voltaren] 1 % gel 4 g topical QID Qty: 200 0RF Rx Instructions: apply 4 grams to the left knee QID PRN pain cyclobenzaprine 10 mg tablet 10 mg PO TID PRN (Reason: Spasms) atorvastatin 20 mg tablet 20 mg PO QAM lisinopril 20 mg tablet 20 mg PO DAILY chlorthalidone 25 mg tablet 25 mg PO DAILY PRN (Reason: Edema) acyclovir 400 mg tablet 400 mg PO BID hydrocodone-acetaminophen 10-325 mg tablet 1 tab PO Q4H PRN (Reason: Pain) hydromorphone 2 mg tablet 2 mg PO Q4H PRN (Reason: Pain) estradiol 1 mg tablet 1 mg PO DAILY gabapentin 300 mg capsule 30 mg PO TID fluoxetine 20 mg capsule 20 mg PO BID levothyroxine 112 mcg tablet 112 mcg PO QAM Discharge Orders: Discharge ED (Routine); Ordered 04/17/23 Ordered By: Fina Darby Referrals: Caroline Avilez, DIGITAL SALES EXECUTIVE [Primary Care Provider] - Patient Instructions: Sacroiliitis (ED), Opioid Safety, Pain Management Activity Restrictions/Additional Instructions: As we discussed you may follow-up with your primary care provider or pain management provider if symptoms do not begin improving over the next week or so. Coding Level of Care Code ED Flight/Transport Nurse for Radhika Linda
[2023-04-17] MEDS: dexamethasone 10 mg/mL INJ 8 MG IM (11:33)
== END 2023-04-17 11:37 | disposition home or self-care (01) ==
PROVIDERS: Emergency Provider Physician Assistant; PCP Nurse Practitioner Family
DX: M53.3 Sacrococcygeal disorders, not elsewhere classified (principal); I10 Essential (primary) hypertension
CPT/HCPCS: 96372; 99284; J1100

== ENCOUNTER 2023-05-08 14:01 | Outpatient (CLI) | payer MEDICARE, OTHER, SELFPAY ==
[2023-05-08 14:18] VITALS: BP 166/93; PULSE 65; RESP 18; TEMP 36.7; O2SAT 100; BMI 29.3
--- NOTE | 2023-10-02 18:38 | XRR_ITS ---
PROCEDURE INFORMATION: Exam: XR Abdomen Exam date and time: 10/02/2023 6:41 PM Age: 73 years old Clinical indication: Prior surgery; Surgery date: 6+ months; Surgery type: Alif/plif; Patient HX: Epigastric pain; Bloating; Constipation x 1 week; HX plif/alif TECHNIQUE: Imaging protocol: Radiologic exam of the abdomen. Views: 3 or more views. COMPARISON: CR XR KUB [id number] 03/23/2020 4:31 PM FINDINGS: Gastrointestinal tract: Nonobstructive bowel gas pattern. Intraperitoneal space: No free air. Bones/joints: Degenerative and postsurgical changes without acute findings. XR/XR abdomen 3V [id number] IMPRESSION: No acute findings.
== END 2023-10-02 18:30 | disposition home or self-care (01) ==
LOC: ER 14:26 → RAD 10-02 18:30
PROVIDERS: Emergency Provider Family Medicine; PCP Nurse Practitioner Family; Visit Provider Nurse Practitioner
DX: K59.00 Constipation, unspecified (principal)
CPT/HCPCS: 71045; 74021

== ENCOUNTER → 2023-07-23 14:12 | Outpatient (BNVA) | payer MEDICARE, OTHER, SELFPAY | PROVIDERS: PCP Nurse Practitioner Family; Visit Provider Physician Assistant | DX: M17.12 Unilateral primary osteoarthritis, left knee (principal) | CPT/HCPCS: 20610; 99213; J7318 ==

== ENCOUNTER → 2024-03-12 16:56 | Outpatient (BNVA) | payer MEDICARE, OTHER, SELFPAY | PROVIDERS: PCP Nurse Practitioner Family; Visit Provider Emergency Medicine | DX: R39.9 Unspecified symptoms and signs involving the genitourinary system (principal) | CPT/HCPCS: 81000 ==

== ENCOUNTER 2024-06-30 13:47 | Emergency (ER) | payer MEDICARE, OTHER, SELFPAY ==
[2024-06-30] VITALS (9 sets, daily range): BP systolic 177–220; BP diastolic 88–110; PULSE 65–85; RESP 14–26; O2SAT 98–100
--- NOTE | 2024-06-30 13:56 | ECG_ITS ---
[facility] [place] [place] [facility] Date: 2024-06[facility]30 Pat Name: Izabel Guillen Department: Room: Gender: Female Personnel Clerk: : 1950 Requested By: Letty Grewal Order Number: [id number] Fab MD: SHERON NINA Measurements Intervals [place] Rate: 89 P: 71 [place]: 137 QRS: 6 QRSD: 94 T: 62 QT: 374 QTc: 457 Interpretive Statements SINUS RHYTHM WITH OCCASIONAL SUPRAVENTRICULAR PREMATURE COMPLEXES Compared to ECG 01/30/2017 13:02:23 No significant changes Electronically Signed On 07-01-2024 23:23:32 AGRICULTURAL CONSULTANT by SHERON NINA [id number]
--- NOTE | 2024-06-30 13:56 | XRR_ITS ---
PROCEDURE INFORMATION: Exam: XR Chest Exam date and time: 06/30/2024 2:02 PM Age: 74 years old Clinical indication: Other: Weakness TECHNIQUE: Imaging protocol: Radiologic exam of the chest. Views: 1 view. COMPARISON: CR (ABDOMEN, ) 10/02/2023 6:41 PM FINDINGS: Lungs: Unremarkable. No consolidation. Pleural spaces: Unremarkable. No pleural effusion. No pneumothorax. Heart/Mediastinum: Unremarkable. No cardiomegaly. Bones/joints: Dextroscoliosis. XR/XR chest 1V portable [id number] IMPRESSION: No acute findings.
--- NOTE | 2024-06-30 13:56 | CT_ITS ---
WS: [id number] CT HEAD TECHNIQUE: Noncontrast CT of the head obtained from the skullbase to the vertex. CLINICAL INFORMATION: Encephalopathy, altered mental status COMPARISON: 2017 DLP: [id number] scans at [facility] use at least one of these dose optimization techniques: automated e xposure control; mA and/or kV adjustment per patient size (includes targeted exams where dose is matc hed to clinical indication); or iterative reconstruction. FINDINGS: No evidence of intracranial hemorrhage or mass effect. Ventricular system and basal cisterns are baker nt. Mild small vessel changes with mild parenchymal volume loss. No extra-axial fluid collections. Va scular calcification. Area of low-attenuation change in the RIGHT parietal white matter nonspecific b ut most likely due to chronic ischemia or small vessel changes. This is new from 2017. This can be fo llowed up with MRI. No other acute findings. Paranasal sinuses and mastoid air cells are well aerated. .Normal visualized soft tissues. CT/CT head thrombolytic [id number] IMPRESSION: 1. No evidence of intracranial hemorrhage or mass effect. Mild small vessel ch anges and mild parenchymal volume loss. 2. Region of low-attenuation change in the RIGHT parietal white matter nonspec ific but most likely due to chronic ischemia/small vessel change. Recommend fol low-up MRI for better anatomic detail and more definitive assessment. 3. No other suspicious findings. Notified Letty Young MD at 06/30/2024 2:14 PM.
[2024-06-30 14:17] LABS: Glucose Point of Care 116 mg/dL (70-110)
[2024-06-30 14:21] LABS: Basophils % 0.3 %; Hematocrit 41.5 % (36-47); Lymphocytes # 1.1 10^3/uL (0.8-4.8); Lymphocytes % 10.6 %; Mean Corpuscular HGB Conc 32.8 g/dL (30-55); Mean Corpuscular Hemoglobin 27.9 pg (27-33); Mean Corpuscular Volume 85.2 fl (85-98); Mean Platelet Volume 10.5 fL (7.4-10.4); Monocytes # 0.9 10^3/uL (0.2-0.9); Monocytes % 8.9 %; Neutrophils # 8.06 10^3/uL (1.8-7.7); Neutrophils % 79.9 %; Nucleated Red Blood Cells % 0 %; Platelet Count 329 10^3/cmm (157-399); Red Blood Count 4.87 10^6/uL (3.85-5.65); Red Cell Distribution Width 13.9 % (12.1-15.1); White Blood Count 10.09 10^3/uL (3.29-11.43)
--- NOTE | 2024-06-30 14:22 | W.ED.WEAKNES ---
HPI - Weakness General: Chief complaint: Weakness Stated complaint: weakness Time Seen by Provider: 06/30/24 13:56 History of Present Illness: 74-year-old female with history of chronic pain syndrome, recurrent UTIs and hypertension who presents emergency room with decreased responsiveness. Family states that since she has been off her rocker . She states she has been like this before and she has had to place a 96-hour hold on her at times. Family says she kicked her boyfriend out and stole her dog. On presentation here she is very somnolent. Family says she has not been sleeping at all. She is been somewhat manic. Says when she does not sleep she gets like this. Patient is able to wake and tell me her name. Will not answer many other questions. Review of Systems General: Reports: ROS unobtainable due to mental status PFSH ED PFSH: Medical History Recurrent UTI Normal colonoscopy Hypertension Chronic back pain Social History Smoking and tobacco/nicotine status: never used tobacco/nicotine Alcohol intake: never Physical Exam Narrative: EXAM NARRATIVE: General: Somnolent but arousable Skin: Warm, dry. Head: Normocephalic, atraumatic. Neck: Supple, trachea midline. Eye: Extraocular movements are intact. Ears, nose, mouth and throat: Dry oral mucosa Cardiovascular: Regular, Normal peripheral perfusion. Respiratory: Lungs are clear to auscultation, respirations are non-labored, breath sounds are equal, Symmetrical chest wall expansion. Gastrointestinal: Soft, Nontender, Non distended Musculoskeletal: Normal ROM, no deformity. Neurological: Somnolent, but arousable but quickly back to sleep, she does follow commands and move all extremities briefly, No focal neurological deficit observed. Psychiatric: Unable to assess Course Vital Signs: Vital signs: Vital Signs Pulse Rate 61 07/01/24 12:15 Respiratory Rate 22 H 07/01/24 12:15 Blood Pressure 131/73 07/01/24 12:15 Pulse Oximetry 96 07/01/24 12:15 Oxygen Delivery Me thod Room Air 07/01/24 12:15 MDM - Weakness Medical Decision Making Medical decision making: Differential diagnosis including but not limited to and based on the above HPI, review of systems and physical exam: In this patient with altered mental status: Stroke. Hypoglycemia. Metabolic encephalopathy. Infections such as pneumonia, urinary tract infection, Covid-19, Influenza. Electrolyte abnormalities such as hypernatremia. Renal failure / uremia. Hepatic encephalopathy. Hypoxemia. Hypercapnic respiratory failure. Psychosis. Drug or alcohol intoxication. Medication overdose. Orders placed to evaluate differential diagnosis based on the above differential, HPI and physical exam CT head: There is a new area from 2017 but appears nonacute in the parietal region. Likely due to chronic ischemia or small vessel changes. Nonemergent MRI was recommended. No intracranial hemorrhage, no evidence of infarct. no evidence of acute fracture.This was reviewed and interpreted by myself the ER physician. Chest x-ray: No acute process. No infiltrate. No pneumothorax. This was reviewed and interpreted by myself the emergency room physician. I also reviewed the radiology report. EKG: Time 1414. Rate 89. Normal sinus rhythm, No ST-T changes, no ectopy, normal UT & QRS intervals, This was reviewed and interpreted by myself the ER physician at 1416. Lab Review: Laboratory results were reviewed and interpreted by myself the emergency room physician. No leukocytosis. No anemia. Renal function is stable at her baseline at 40 and 2.0. Previous was a couple years ago but was 20 and 1.9 at that time. Drug screen is negative. Urinalysis is negative for infection. I reviewed the patient's medical record. Reexamination: Patient has had episodes of lucidity. She can lift herself up out of the bed at times. She has no focal motor deficits. She was able to tell her name and her birthdate. However she remains extremely somnolent. I have discussed this case with the family multiple times. I believe that likely she had another manic episode or acute psychosis as states that she had not gone to sleep for many many days. I think at this point she is just become extremely somnolent from this. However there is the concern for possible small area of stroke. The hospitalist spoke with the patient and they will feel that the patient needs to be transferred for neurology consultation. Consultation: I spoke with Dr. Murcia who saw the patient and will not admit the patient to the hospitalist service. Consultation: Later consulted Dr. Pineda with the hospitalist service as the patient is not being accepted anywhere. He feels that she should not be admitted here either. We will continue to search for hospital that has both neuro and [facility] psych. I think likely she will just need [facility] psych. Assessment and plan: Metabolic encephalopathy Chronic pain syndrome Possible CVA Patient care transitioned to overnight doc. I likely will follow-up of this in the morning. MRI has been ordered. This will hopefully be done in the morning if she will tolerate Lab Data 07/01/24 11:27 07/01/24 11:27 Radiology Impressions Chest X-Ray 06/30/24 13:56 IMPRESSION: No acute findings. Head CT 06/30/24 13:56 IMPRESSION: 1. No evidence of intracranial hemorrhage or mass effect. Mild small vessel changes and mild parenchymal volume loss. 2. Region of low-attenuation change in the RIGHT parietal white matter nonspecific but most likely due to chronic ischemia/small vessel change. Recommend follow-up MRI for better anatomic detail and more definitive assessment. 3. No other suspicious findings. Notified Letty Young MD at 06/30/2024 2:14 PM. Head MRI 07/01/24 07:28 IMPRESSION: 1. Normal diffusion imaging. No acute infarct. 2. Area of decreased attenuation on the recent head CT in the RIGHT parietal white matter appears to be an area more focal, asymmetric small vessel ischemic change. Progression since 2017. No IV contrast was given for this examination but there does not appear to be mass effect and there is no hemorrhage. 3. Mild volume loss and mild small vessel disease. Laboratory Results WBC 10.10 10^3/uL (3.29-11.43) 07/01/24 11:27 RBC 4.86 10^6/uL (3.85-5.65) 07/01/24 11:27 Hgb 13.60 g/dL (11.27-16.99) 07/01/24 11:27 Hct 43.6 % (36-47) 07/01/24 11:27 MCV 89.7 fl (85-98) D 07/01/24 11:27 MCH 28.0 pg (27-33) 07/01/24 11:27 MCHC 31.2 g/dL (30-55) 07/01/24 11:27 RDW 14.4 % (12.1-15.1) 07/01/24 11:27 Plt Count 277 10^3/cmm (157-399) 07/01/24 11:27 MPV 10.6 fL (7.4-10.4) H 07/01/24 11:27 Neut % (Auto) 85.5 % 07/01/24 11:27 Lymph % (Auto) 7.6 % 07/01/24 11:27 Allen % (Auto) 6.5 % 07/01/24 11:27 Eos % (Auto) 0.1 % 07/01/24 11:27 Baso % (Auto) 0.1 % 07/01/24 11:27 Neut # (Auto) 8.63 10^3/uL (1.8-7.7) H 07/01/24 11:27 Lymph # (Auto) 0.8 10^3/uL (0.8-4.8) 07/01/24 11:27 Allen # (Auto) 0.7 10^3/uL (0.2-0.9) 07/01/24 11:27 Eos # (Auto) 0.0 10^3/uL (0.0-0.8) 07/01/24 11:27 Baso # (Auto) 0.0 10^3/uL (0.0-0.1) 07/01/24 11:27 Nucleated RBC % (auto) 0 % 07/01/24 11: Nucleated RBCs # 0.0 /100WBC 07/01/24 11:27 Specimen Type Arterial 06/30/24 14:20 Sample Site Brachial, right 06/30/24 14:20 ABG pH 7.39 (7.35-7.45) 06/30/24 14:20 ABG pCO2 37.7 mmHg (35-45) 06/30/24 14:20 ABG pO2 92.0 mmHg (80.0-100.0) 06/30/24 14:20 ABG PO2/FiO2 Ratio 438 06/30/24 14:20 ABG HCO3 22.6 mmol/L (22-26) 06/30/24 14:20 ABG O2 Saturation 97.5 06/30/24 14:20 ABG Base Excess -2.0 mmol/L (-2.0-2.0) 06/30/24 14:20 Andre Test N/a 06/30/24 14:20 A-a O2 Gradient 1.4 mmHg (5-10) L 06/30/24 14:20 Hematocrit 42.4 % (37-47) 06/30/24 14:20 Hgb O2 Saturation 95.8 % (95-100) 06/30/24 14:20 Carboxyhemoglobin 0.7 %THgb (0.4-20.1) 06/30/24 14:20 Methemoglobin 1.1 % (0.4-1.5) 06/30/24 14:20 Total Hemoglobin 13.8 g/dL (12-16) 06/30/24 14:20 Sodium 135.0 mmol/L (131-143) 06/30/24 14:20 Potassium 3.3 mmol/L (3.5-5.0) L 06/30/24 14:20 Glucose 111.0 mg/dL (70-115) 06/30/24 14:20 Ionized Calcium 1.2 mmol/L (1.1-1.4) 06/30/24 14:20 O2 Delivery Device Room air 06/30/24 14:20 FiO2 21.0 % 06/30/24 14:20 Pewter Finisher ID Amh 06/30/24 14:20 Sodium 136 mmol/L (136-145) 07/01/24 11:27 Potassium 3.7 mmol/L (3.5-5.1) 07/01/24 11:27 Chloride 94 mmol/L (98-107) L 07/01/24 11:27 Carbon Dioxide 21 mmol/L (22-29) L 07/01/24 11:27 Anion Gap 24.7 (5-19) H 07/01/24 11:27 BUN 35 mg/dL (8-23) H 07/01/24 11:27 Creatinine 1.5 mg/dL (0.5-0.9) H 07/01/24 11:27 GFR Calculation Not Reportable 07/01/24 11:27 Glucose 111 mg/dL (65-115) 07/01/24 11:27 POC Glucose 116 mg/dL (70-110) H 06/30/24 14:13 Calculated Osmolality 291 mOsm/kg (285-295) 07/01/24 11:27 Lactic Acid 1.3 mmol/L (0.5-2.2) 06/30/24 14:14 Calcium 9.4 mg/dL (8.5-10.5) 07/01/24 11:27 Total Bilirubin 0.6 mg/dL (0.15-1.2) 07/01/24 11:27 AST 30 U/L (0-32) 07/01/24 11:27 ALT 22 U/L (0-33) 07/01/24 11:27 Alkaline Phosphatase 103 U/L (35-105) 07/01/24 11:27 Ammonia 17 umol/L (11-51) 06/30/24 14:14 Troponin T Baseline 30 ng/L (0-10) H 06/30/24 14:14 Troponin T 120 Minute 31.35 ng/L (0-10) H 06/30/24 17:21 Delta Troponin T 1.35 ABS# (0-10) 06/30/24 17:21 Troponin T Hi Sens 6Hr 40.57 ng/L (0-10) H 06/30/24 21:24 Troponin T Hi Sens 6Hr Delta 10.57 ng/L (0-12) 06/30/24 21:24 Total Protein 6.8 g/dL (6.6-8.7) 07/01/24 11:27 Albumin 4.0 g/dL (3.5-5.2) 07/01/24 11:27 Globulin 2.8 g/dL (1.3-4.6) 07/01/24 11:27 TSH 1.03 uIU/mL (0.27-4.20) 06/30/24 17:21 Urine Color Yellow (Yellow) 06/30/24 14:58 Urine Appearance Clear (CLEAR) 06/30/24 14:58 Urine pH 5.5 (5-7) 06/30/24 14:58 Ur Specific [place] 1.019 (1.005-1.030) 06/30/24 14:58 Urine Protein 1+ (Negative) A 06/30/24 14:58 Urine Glucose (UA) Negative (Normal) 06/30/24 14:58 Urine Ketones 1+ (Negative) H 06/30/24 14:58 Urine Blood Negative (Negative) 06/30/24 14:58 Urine Nitrate Negative (Negative) 06/30/24 14:58 Urine Bilirubin Negative (Negative) 06/30/24 14:58 Urine Urobilinogen 0.2 mg/dL (Negative) 06/30/24 14:58 Ur Leukocyte Esterase Negative (Negative) 06/30/24 14:58 Urine RBC 3-5 /hpf (0-2) 06/30/24 14:58 Urine WBC 0-5 /hpf (0-5) 06/30/24 14:58 Ur Squamous Epith Cells 6-10 /hpf (0-5) 06/30/24 14:58 Amorphous Sediment Not Reportable 06/30/24 14:58 Urine Bacteria None seen /hpf (NONE) 06/30/24 14:58 Hyaline Casts 49.24 /lpf 06/30/24 14:58 Salicylates < 0.3 mg/dL (3-10) L 06/30/24 14:14 Urine Opiates Screen Negative ng/mL (Negative) 06/30/24 14:58 Acetaminophen < 5.0 ug/mL (10-30) L 06/30/24 14:14 Ur Barbiturates Screen Negative ng/mL (Negative) 06/30/24 14:58 Ur Phencyclidine Scrn Negative ng/mL (Negative) 06/30/24 14:58 Ur Amphetamines Screen Negative ng/mL (Negative) 06/30/24 14:58 U Benzodiazepines Scrn Negative ng/mL (Negative) 06/30/24 14:58 Urine Cocaine Screen Negative ng/mL (Negative) 06/30/24 14:58 U Marijuana (THC) Screen Negative ng/mL (Negative) 06/30/24 14:58 Ethyl Alcohol < 10 mg/dL (0-10) 06/30/24 14:14 All radiology interpretation(s) finalized by discharge Discharge Plan Discharge Patient Disposition: Xfer Short-Term Hosp Clinical Impression: Acute metabolic encephalopathy, Chronic pain syndrome Condition: Stable Referrals: Caroline Avilez RIGHT OF WAY MAINTENANCE SUPERVISOR [Primary Care Provider] - Coding Level of Care Code ED Probe Operator for Chg Fwd Related Data Home Medications Medication Instructions Recorded Confirmed cyclobenzaprine 10 mg tablet 10 mg PO TID PRN Spasms 04/17/23 06/30/24 fluoxetine 20 mg capsule 20 mg PO BID 04/17/23 06/30/24 gabapentin 300 mg capsule 300 mg PO TID 04/17/23 06/30/24 hydrocodone 10 mg-acetaminophen 1 tab PO Q4H PRN Pain 04/17/23 06/30/24 325 mg tablet levothyroxine 112 mcg tablet 112 mcg PO QAM 04/17/23 06/30/24 lisinopril 20 mg tablet 20 mg PO DAILY 04/17/23 06/30/24 acyclovir 400 mg tablet 400 mg PO BID 06/30/24 06/30/24 fluticasone furoate 100 1 inh inhalation DAILY 06/30/24 06/30/24 mcg/actuation blister powder for inhalation (Arnuity Ellipta) hydromorphone 2 mg tablet 1 - 2 mg PO .Q4-6H PRN Pain 06/30/24 06/30/24 hydromorphone 2 mg tablet 1 - 5 mg PO TID 06/30/24 06/30/24 Previous Rx's Medication Instructions Recorded NUBIA shah #1 ea 06/25/20 albuterol sulfate 90 mcg/actuation 2 inh inhalation Q4H PRN shortness 05/15/24 aerosol inhaler of breath or wheezing #6.7 grams budesonide 180 mcg/actuation 1 inh inhalation BID #1 ea 05/15/24 breath activated powder inhaler Allergies Allergy/AdvReac Type Severity Reaction Status Date / Time No Known Allergies Allergy Verified 05/15/24 11:21
[2024-06-30 14:32] LABS: ABG PCO2 37.7 mmHg (35-45); ABG PH Result 7.39 (7.35-7.45); Alveolar-Arterial Oxygen Gradi 1.4 mmHg (5-10); Arterial Blood Gas Hematocrit 42.4 % (37-47); Blood Gas Operator Identificat AMH; Blood Gas Sample Site Brachial, right; Blood Gas Sample Type Arterial; Carboxyhemoglobin 0.7 %THgb (0.4-20.1); HCO3 ABG 22.6 mmol/L (22-26); HGB O2 Sat 95.8 % (95-100); Ionized Calcium Level - ABG 1.2 mmol/L (1.1-1.4); Methemoglobin 1.1 % (0.4-1.5); Oxygen Device ROOM AIR; Oxygen Saturation ABG 97.5; PO2 FiO2 Ratio Arterial Blood 438; Potassium Level - ABG 3.3 mmol/L (3.5-5.0); Total Hemoglobin 13.8 g/dL (12-16)
[2024-06-30 14:37] LABS: Troponin(5th) Baseline 30 ng/L (0-10)
[2024-06-30 14:40] LABS: Lactic Sepsis W/Reflex 1.3 mmol/L (0.5-2.2)
[2024-06-30] MEDS: sodium chloride 0.9% 1,000 ML 999 ML IV (14:43)
[2024-06-30 14:53] LABS: Alanine Aminotransferase 25 U/L (0-33); Albumin Level 4.3 g/dL (3.5-5.2); Alkaline Phosphatase 110 U/L (35-105); Ammonia 17 umol/L (11-51); Anion Gap 26.4 (5-19); Aspartate Amino Transferase 38 U/L (0-32); Blood Urea Nitrogen 40 mg/dL (8-23); Calcium 10.2 mg/dL (8.5-10.5); Carbon Dioxide 20 mmol/L (22-29); Chloride 88 mmol/L (98-107); Globulin 2.9 g/dL (1.3-4.6); Glucose 113 mg/dL (65-115); Osmolality Calculated 283 mOsm/kg (285-295); Potassium 3.4 mmol/L (3.5-5.1); Sodium 131 mmol/L (136-145); Total Bilirubin 0.7 mg/dL (0.15-1.2); Total Protein 7.2 g/dL (6.6-8.7)
[2024-06-30 14:54] LABS: Acetaminophen < 5.0 ug/mL (10-30); Alcohol Level < 10 mg/dL (0-10); Salicylate < 0.3 mg/dL (3-10)
[2024-06-30 15:14] LABS: Bilirubin Urine Negative (Negative); Blood Urine Negative (Negative); Glucose Urine UA Negative (Normal); Ketones Urine 1+ (Negative); Leukocyte Esterase Urine Negative (Negative); Nitrate Urine Negative (Negative); Protein Urine 1+ (Negative); Specific Gravity, Urine 1.019 (1.005-1.030); Urine Appearance Clear (CLEAR); Urine Color Yellow (Yellow); Urobilinogen Urine 0.2 mg/dL (Negative); pH Urine 5.5 (5-7)
[2024-06-30 15:16] LABS: Bacteria Urine None Seen /hpf; Hyaline Casts Urine 49.24 /lpf; WBC Urine 0-5 /hpf (0-5)
[2024-06-30 15:20] LABS: Amphetamines Screen Urine Negative (Negative); Barbiturates Screen Urine Negative (Negative); Benzodiazepines Screen Urine Negative (Negative); Cocaine Screen Urine Negative (Negative); Opiate Screen Urine Negative (Negative); PCP Screen Urine Negative (Negative); THC Screen Urine Negative (Negative)
[2024-06-30 15:29] LABS: Add Urine Culture? No; UA Slide Review UA Slide Review Perf
--- NOTE | 2024-06-30 15:36 | PC.PHAR ---
Pt unable to verify medications. Family in the room has verified medications. Spoke with Cole and TORO about c2 pain meds and added last fill dates, quantities and days supply.
--- NOTE | 2024-06-30 15:56 | ECG_ITS ---
[facility] Test Date: 2024-06-30 Pat Name: Izabel Guillen Department: Room: Gender: Female Telecom Specialist: : [id number] Requested By: Letty Grewal Order Number: [id number] Reading MD: SHERON NINA Measurements Intervals [place] Rate: 82 P: 55 VA: 134 QRS: -22 QRSD: 92 T: -22 QT: 390 QTc: 456 Interpretive Statements SINUS RHYTHM WITH OCCASIONAL SUPRAVENTRICULAR PREMATURE COMPLEXES BORDERLINE LEFT AXIS DEVIATION [QRS AXIS < -20] ST DEVIATION AND MODERATE T-WAVE ABNORMALITY, CONSIDER INFERIOR ISCHEMIA [-0.1+ mV T-WAVE IN II/aVF] Compared to ECG 06/30/2024 14:14:30 T-wave abnormality now present Possible ischemia now present Electronically Signed On 07-01-2024 23:33:10 SIGN WRITER HAND by SHERON NINA [email or web address]
[2024-06-30] MEDS: labetalol 5 mg/mL SDV 20mL 20 MG IVP (18:02)
[2024-06-30 18:09] LABS: Troponin 5 2HR 31.35 ng/L (0-10); Troponin 5 2HR Delta 1.35 ABS# (0-10)
--- NOTE | 2024-06-30 19:23 | PC.NURSE ---
ASSUMED CARE OF PT AT 1900. PT IS RESTING IN BED AT THIS TIME, BUT DID OPEN HER EYES AND TELL ME HER NAME.
[2024-06-30 20:02] LABS: Thyroid Stimulating Hormone 1.03 uIU/mL (0.27-4.20)
--- NOTE | 2024-06-30 21:31 | PC.NURSE ---
PT IS RESTING IN HER BED AT THIS TIME. PT IS STILL NONRESPONSIVE TO SOUND, BUT DID RESPOND TO TOUCH. FAMILY MEMBER IS SITTING IN THE FLOOR WITH A BLANKET AT THIS TIME.
[2024-06-30 21:54] LABS: Troponin 5 6HR 40.57 ng/L (0-10); Troponin 5 6HR Delta 10.57 ng/L (0-12)
[2024-07-01] VITALS (29 sets, daily range): BP systolic 127–198; BP diastolic 73–107; PULSE 61–90; RESP 17–29; O2SAT 94–100
[2024-07-01] MEDS: labetalol 5 mg/mL SDV 20mL 20 MG IVP ×2 (01:12→04:36)
--- NOTE | 2024-07-01 01:16 | PC.NURSE ---
WHEN ADMINISTERING MEDICATION TO PT, PT WAS ABLE TO HOLD UP HER ARM, TELL ME HER NAME AND , TELL ME HER DAUGHTERS NAME AND THE MONTH SHE WAS BORN. PT DID THEN CLOSE HER EYES AND GO BACK TO SLEEP.
--- NOTE | 2024-07-01 07:10 | PC.NURSE ---
took over pt care from MICHAEL Mayes @ 1045
--- NOTE | 2024-07-01 07:28 | MR_ITS ---
WS: [id number] MRI BRAIN WITHOUT CONTRAST HISTORY: CVA COMPARISON: 02/27/2017, CT head 06/30/2024 TECHNIQUE: Diffusion imaging, multiplanar T1, T2 and FLAIR imaging obtained. Diffusion imaging is normal. No acute infarct. Area of decreased attenuation on the head CT correspon ds to a focal area of increased T2 and FLAIR signal without mass effect. Progression of what appears to be small vessel disease. This is slightly asymmetric more prominent on the RIGHT. There are additi onal scattered T2 and FLAIR signal hyperintensities which are bilateral from small vessel disease. No hemorrhage. Mild bilateral hippocampal atrophy. Mild symmetric volume loss. Mild cerebellar volume loss. Ventricles and extra-axial spaces are normal. No inferior displacement of cerebellar tonsils. The sella turcica and pituitary gland are unremarkabl e. Dural venous sinuses and [place] of [place] demonstrate no abnormality on this unenhanced studies. Paranasal sinuses: Clear. Mastoid air cells: Normal. Calvarium and scalp: Intact. MR/MR head wo con* [id number] IMPRESSION: 1. Normal diffusion imaging. No acute infarct. 2. Area of decreased attenuation on the recent head CT in the RIGHT parietal w can matter appears to be an area more focal, asymmetric small vessel ischemic change. Progression since 2016. No IV contrast was given for this examination b ut there does not appear to be mass effect and there is no hemorrhage. 3. Mild volume loss and mild small vessel disease.
--- NOTE | 2024-07-01 09:32 | PC.NURSE ---
daughter is present in room with patient, pt is not speaking and has not spoke since I took care this morning. pt will part way open her eyes and will blink but will not verbalize anything. this rn sternal rubbed her to attempt to get a response and she just shook her head no. no verbal response given.
[2024-07-01] MEDS: LORazepam 2 mg/mL INJ 1 mL IVP ×2 (11:39→14:09)
[2024-07-01] MEDS: sodium chloride 0.9% 1,000 ML 999 ML IV (11:39)
[2024-07-01 11:40] LABS: Basophils % 0.1 %; Eosinophils % 0.1 %; Hematocrit 43.6 % (36-47); Lymphocytes # 0.8 10^3/uL (0.8-4.8); Lymphocytes % 7.6 %; Mean Corpuscular HGB Conc 31.2 g/dL (30-55); Mean Corpuscular Volume 89.7 fl (85-98); Mean Platelet Volume 10.6 fL (7.4-10.4); Monocytes # 0.7 10^3/uL (0.2-0.9); Monocytes % 6.5 %; Neutrophils # 8.63 10^3/uL (1.8-7.7); Neutrophils % 85.5 %; Nucleated Red Blood Cells % 0 %; Platelet Count 277 10^3/cmm (157-399); Red Blood Count 4.86 10^6/uL (3.85-5.65); Red Cell Distribution Width 14.4 % (12.1-15.1)
[2024-07-01 11:55] LABS: Alanine Aminotransferase 22 U/L (0-33); Alkaline Phosphatase 103 U/L (35-105); Aspartate Amino Transferase 30 U/L (0-32); Blood Urea Nitrogen 35 mg/dL (8-23); Calcium 9.4 mg/dL (8.5-10.5); Carbon Dioxide 21 mmol/L (22-29); Chloride 94 mmol/L (98-107); Creatinine Clr Calc Pharmacy 34.0698; Globulin 2.8 g/dL (1.3-4.6); Glucose 111 mg/dL (65-115); Osmolality Calculated 291 mOsm/kg (285-295); Sodium 136 mmol/L (136-145); Total Bilirubin 0.6 mg/dL (0.15-1.2); Total Protein 6.8 g/dL (6.6-8.7)
[2024-07-01 11:56] LABS: Anion Gap 24.7 (5-19); Potassium 3.7 mmol/L (3.5-5.1)
--- NOTE | 2024-07-01 12:23 | W.ED.WEAKNES ---
HPI - Weakness General: Chief complaint: Weakness Stated complaint: weakness Time Seen by Provider: 06/30/24 13:56 History of Present Illness: This is a patient that I saw her yesterday and was in the process of a workup. I believe she had a manic episode and is now catatonic. However there was some concern for stroke on the CT scan so an MRI was done. This was completed this morning. I have reevaluated her today. Overnight family says that she did not move at all. On exam she does blink her eyes and look around but will not move. She will not speak today. Yesterday she did have a couple of times where she would speak slowly and followed some commands. Review of Systems General: Reports: ROS unobtainable due to mental status PFSH ED PFSH: Medical History Recurrent UTI Normal colonoscopy Hypertension Chronic back pain Social History Smoking and tobacco/nicotine status: never used tobacco/nicotine Alcohol intake: never Physical Exam Narrative: EXAM NARRATIVE: General: no acute distress. Skin: Warm, dry. Head: Normocephalic, atraumatic. Neck: Supple, trachea midline. Eye: Extraocular movements are intact. Ears, nose, mouth and throat: Tacky oral mucosa Cardiovascular: Regular, Normal peripheral perfusion. Respiratory: Lungs are clear to auscultation, respirations are non-labored, breath sounds are equal, Symmetrical chest wall expansion. Gastrointestinal: Soft, Nontender, Non distended Musculoskeletal: Normal ROM, no deformity. Neurological: Patient continues to lay in bed. Today she does open her eyes and seems to look around but will not answer any questions. Psychiatric: Unable to assess. Appears to be catatonic Course Vital Signs: Vital signs: Vital Signs Pulse Rate 62 07/01/24 13:15 Respiratory Rate 17 07/01/24 13:15 Blood Pressure 158/101 07/01/24 13:15 Pulse Oximetry 97 07/01/24 13:15 Oxygen Delivery Me thod Room Air 07/01/24 13:15 MDM - Weakness Medical Decision Making MRI: There does appear to be some old small vessel disease and the parietal area but this would not explain the patient's symptoms. This was reviewed and interpreted by myself the emergency room physician. I also reviewed the radiology report. Consultation: I spoke with Dr. Sheets who is on-call for psychiatry. He is not a geriatric psychiatrist but this problem seems to be more in the general psychiatry realm. He recommends Ativan and fairly high dose. He says that with catatonic patients which this appears to be this has been proven to be helpful. He will see the patient today. Lab review: Creatinine has improved some down to 35 and 1.5 of fluids. Lab work otherwise appears normal. I am ordering another bolus of fluids that she has not had anything to eat or drink all night. I am starting her on some maintenance fluid. Assessment and plan: Catatonic state status post manic phase Dehydration ?2 mg IV Ativan, normal saline bolus, D5 normal saline at 75. ?Psychiatry consultation. Ativan and then transfer to geriatric psychiatric facility. ?Patient is cleared from a medical standpoint and if this Ativan works we will attempt to have transfer. Patient did have some response to Ativan. I talked again with Dr. Sheets who feels this is most definitely a manic episode followed by catatonia. He recommends transfer to a [facility]. Lab Data 07/01/24 11:27 07/01/24 11:27 Radiology Impressions Chest X-Ray 06/30/24 13:56 IMPRESSION: No acute findings. Head CT 06/30/24 13:56 IMPRESSION: 1. No evidence of intracranial hemorrhage or mass effect. Mild small vessel changes and mild parenchymal volume loss. 2. Region of low-attenuation change in the RIGHT parietal white matter nonspecific but most likely due to chronic ischemia/small vessel change. Recommend follow-up MRI for better anatomic detail and more definitive assessment. 3. No other suspicious findings. Notified Letty Young MD at 06/30/2024 2:14 PM. Head MRI 07/01/24 07:28 IMPRESSION: 1. Normal diffusion imaging. No acute infarct. 2. Area of decreased attenuation on the recent head CT in the RIGHT parietal white matter appears to be an area more focal, asymmetric small vessel ischemic change. Progression since 2016. No IV contrast was given for this examination but there does not appear to be mass effect and there is no hemorrhage. 3. Mild volume loss and mild small vessel disease. Laboratory Results WBC 10.10 10^3/uL (3.29-11.43) 07/01/24 11:27 RBC 4.86 10^6/uL (3.85-5.65) 07/01/24 11:27 Hgb 13.60 g/dL (11.27-16.99) 07/01/24 11:27 Hct 43.6 % (36-47) 07/01/24 11:27 MCV 89.7 fl (85-98) D 07/01/24 11:27 MCH 28.0 pg (27-33) 07/01/24 11:27 MCHC 31.2 g/dL (30-55) 07/01/24 11:27 RDW 14.4 % (12.1-15.1) 07/01/24 11:27 Plt Count 277 10^3/cmm (157-399) 07/01/24 11:27 MPV 10.6 fL (7.4-10.4) H 07/01/24 11:27 Neut % (Auto) 85.5 % 07/01/24 11:27 Lymph % (Auto) 7.6 % 07/01/24 11:27 Piatt % (Auto) 6.5 % 07/01/24 11:27 Eos % (Auto) 0.1 % 07/01/24 11:27 Baso % (Auto) 0.1 % 07/01/24 11:27 Neut # (Auto) 8.63 10^3/uL (1.8-7.7) H 07/01/24 11:27 Lymph # (Auto) 0.8 10^3/uL (0.8-4.8) 07/01/24 11:27 Piatt # (Auto) 0.7 10^3/uL (0.2-0.9) 07/01/24 11:27 Eos # (Auto) 0.0 10^3/uL (0.0-0.8) 07/01/24 11:27 Baso # (Auto) 0.0 10^3/uL (0.0-0.1) 07/01/24 11:27 Nucleated RBC % (auto) 0 % 07/01/24 11: Nucleated RBCs # 0.0 /100WBC 07/01/24 11:27 Specimen Type Arterial 06/30/24 14:20 Sample Site Brachial, right 06/30/24 14:20 ABG pH 7.39 (7.35-7.45) 06/30/24 14:20 ABG pCO2 37.7 mmHg (35-45) 06/30/24 14:20 ABG pO2 92.0 mmHg (80.0-100.0) 06/30/24 14:20 ABG PO2/FiO2 Ratio 438 06/30/24 14:20 ABG HCO3 22.6 mmol/L (22-26) 06/30/24 14:20 ABG O2 Saturation 97.5 06/30/24 14:20 ABG Base Excess -2.0 mmol/L (-2.0-2.0) 06/30/24 14:20 Andre Test N/a 06/30/24 14:20 A-a O2 Gradient 1.4 mmHg (5-10) L 06/30/24 14:20 Hematocrit 42.4 % (37-47) 06/30/24 14:20 Hgb O2 Saturation 95.8 % (95-100) 06/30/24 14:20 Carboxyhemoglobin 0.7 %THgb (0.4-20.1) 06/30/24 14:20 Methemoglobin 1.1 % (0.4-1.5) 06/30/24 14:20 Total Hemoglobin 13.8 g/dL (12-16) 06/30/24 14:20 Sodium 135.0 mmol/L (131-143) 06/30/24 14:20 Potassium 3.3 mmol/L (3.5-5.0) L 06/30/24 14:20 Glucose 111.0 mg/dL (70-115) 06/30/24 14:20 Ionized Calcium 1.2 mmol/L (1.1-1.4) 06/30/24 14:20 O2 Delivery Device Room air 06/30/24 14:20 FiO2 21.0 % 06/30/24 14:20 Media Sales Representative ID [id number] 06/30/24 14:20 Sodium 136 mmol/L (136-145) 07/01/24 11:27 Potassium 3.7 mmol/L (3.5-5.1) 07/01/24 11:27 Chloride 94 mmol/L (98-107) L 07/01/24 11:27 Carbon Dioxide 21 mmol/L (22-29) L 07/01/24 11:27 Anion Gap 24.7 (5-19) H 07/01/24 11:27 BUN 35 mg/dL (8-23) H 07/01/24 11:27 Creatinine 1.5 mg/dL (0.5-0.9) H 07/01/24 11:27 GFR Calculation Not Reportable 07/01/24 11:27 Glucose 111 mg/dL (65-115) 07/01/24 11:27 POC Glucose 116 mg/dL (70-110) H 06/30/24 14:13 Calculated Osmolality 291 mOsm/kg (285-295) 07/01/24 11:27 Lactic Acid 1.3 mmol/L (0.5-2.2) 06/30/24 14:14 Calcium 9.4 mg/dL (8.5-10.5) 07/01/24 11:27 Total Bilirubin 0.6 mg/dL (0.15-1.2) 07/01/24 11:27 AST 30 U/L (0-32) 07/01/24 11:27 ALT 22 U/L (0-33) 07/01/24 11:27 Alkaline Phosphatase 103 U/L (35-105) 07/01/24 11:27 Ammonia 17 umol/L (11-51) 06/30/24 14:14 Troponin T Baseline 30 ng/L (0-10) H 06/30/24 14:14 Troponin T 120 Minute 31.35 ng/L (0-10) H 06/30/24 17:21 Delta Troponin T 1.35 ABS# (0-10) 06/30/24 17:21 Troponin T Hi Sens 6Hr 40.57 ng/L (0-10) H 06/30/24 21:24 Troponin T Hi Sens 6Hr Delta 10.57 ng/L (0-12) 06/30/24 21:24 Total Protein 6.8 g/dL (6.6-8.7) 07/01/24 11:27 Albumin 4.0 g/dL (3.5-5.2) 07/01/24 11:27 Globulin 2.8 g/dL (1.3-4.6) 07/01/24 11:27 TSH 1.03 uIU/mL (0.27-4.20) 06/30/24 17:21 Urine Color Yellow (Yellow) 06/30/24 14:58 Urine Appearance Clear (CLEAR) 06/30/24 14:58 Urine pH 5.5 (5-7) 06/30/24 14:58 Ur Specific Sen[place] 1.019 (1.005-1.030) 06/30/24 14:58 Urine Protein 1+ (Negative) A 06/30/24 14:58 Urine Glucose (UA) Negative (Normal) 06/30/24 14:58 Urine Ketones 1+ (Negative) H 06/30/24 14:58 Urine Blood Negative (Negative) 06/30/24 14:58 Urine Nitrate Negative (Negative) 06/30/24 14:58 Urine Bilirubin Negative (Negative) 06/30/24 14:58 Urine Urobilinogen 0.2 mg/dL (Negative) 06/30/24 14:58 Ur Leukocyte Esterase Negative (Negative) 06/30/24 14:58 Urine RBC 3-5 /hpf (0-2) 06/30/24 14:58 Urine WBC 0-5 /hpf (0-5) 06/30/24 14:58 Ur Squamous Epith Cells 6-10 /hpf (0-5) 06/30/24 14:58 Amorphous Sediment Not Reportable 06/30/24 14:58 Urine Bacteria None seen /hpf (NONE) 06/30/24 14:58 Hyaline Casts 49.24 /lpf 06/30/24 14:58 Salicylates < 0.3 mg/dL (3-10) L 06/30/24 14:14 Urine Opiates Screen Negative ng/mL (Negative) 06/30/24 14:58 Acetaminophen < 5.0 ug/mL (10-30) L 06/30/24 14:14 Ur Barbiturates Screen Negative ng/mL (Negative) 06/30/24 14:58 Ur Phencyclidine Scrn Negative ng/mL (Negative) 06/30/24 14:58 Ur Amphetamines Screen Negative ng/mL (Negative) 06/30/24 14:58 U Benzodiazepines Scrn Negative ng/mL (Negative) 06/30/24 14:58 Urine Cocaine Screen Negative ng/mL (Negative) 06/30/24 14:58 U Marijuana (THC) Screen Negative ng/mL (Negative) 06/30/24 14:58 Ethyl Alcohol < 10 mg/dL (0-10) 06/30/24 14:14 No radiology studies performed this visit Discharge Plan Discharge Patient Disposition: Xfer Short-Term Hosp Clinical Impression: Catatonia associated with another mental disorder, Manic episode Condition: Stable Referrals: Caroline Avilez FNP [Primary Care Provider] - Coding Level of Care Code ED Senior Manager [employer] for Chg Fwd Related Data Home Medications Medication Instructions Recorded Confirmed cyclobenzaprine 10 mg tablet 10 mg PO TID PRN Spasms 04/17/23 06/30/24 fluoxetine 20 mg capsule 20 mg PO BID 04/17/23 06/30/24 gabapentin 300 mg capsule 300 mg PO TID 04/17/23 06/30/24 hydrocodone 10 mg-acetaminophen 1 tab PO Q4H PRN Pain 04/17/23 06/30/24 325 mg tablet levothyroxine 112 mcg tablet 112 mcg PO QAM 04/17/23 06/30/24 lisinopril 20 mg tablet 20 mg PO DAILY 04/17/23 06/30/24 acyclovir 400 mg tablet 400 mg PO BID 06/30/24 06/30/24 fluticasone furoate 100 1 inh inhalation DAILY 06/30/24 06/30/24 mcg/actuation blister powder for inhalation (Arnuity Ellipta) hydromorphone 2 mg tablet 1 - 2 mg PO .Q4-6H PRN Pain 06/30/24 06/30/24 hydromorphone 2 mg tablet 1 - 5 mg PO TID 06/30/24 06/30/24 Previous Rx's Medication Instructions Recorded CAM walker #1 ea 06/25/20 albuterol sulfate 90 mcg/actuation 2 inh inhalation Q4H PRN shortness 05/15/24 aerosol inhaler of breath or wheezing #6.7 grams budesonide 180 mcg/actuation 1 inh inhalation BID #1 ea 05/15/24 breath activated powder inhaler Allergies Allergy/AdvReac Type Severity Reaction Status Date / Time No Known Allergies Allergy Verified 05/15/24 11:21
[2024-07-01] MEDS: dextrose 5%-sod chloride 0.9% 1,000 ML 75 ML IV (13:13)
--- NOTE | 2024-07-01 15:53 | PC.NURSE ---
pt o2 sat reading dropped to 70's and 80's , Dr. Young requested pt be put on 2 LNC. Pt on 2L NC and sat at 100%. This nurse adjusted pt O2 to 1L NC, sat at 99%.
--- NOTE | 2024-07-01 20:51 | PC.NURSE ---
pt has had multiple family members in room, 1 daughter mostly and then a daughter from [place]. Questions answered when asked or provider notified and provider Hector Levy has spoken with family. At this time pt's Boyfriend is at bedside and requesting to speak with doctor. Will notify Dr Young when is available.
--- NOTE | 2024-07-01 21:42 | PC.NURSE ---
pt's boyfriend and Dr. Young talked, come to decision that pt's poa wants to take pt out of hospital [facility] and seek help elsewhere. Pt's daughter was bedside and heard conversation. pt agreeing. pt iv removed with catheter intact. pt's boyfriend is getting pt dressed and then leaving.
== END 2024-07-01 22:09 | disposition short-term general hospital (02) ==
LOC: ER 16:17 → CSU 18:08
PROVIDERS: Emergency Provider Emergency Medicine; PCP Nurse Practitioner Family
DX: G93.41 Metabolic encephalopathy (principal); G89.4 Chronic pain syndrome; I10 Essential (primary) hypertension
CPT/HCPCS: 36415; 36416; 36600; 70450; 70551; 71045; 80051; 80053; 80306; 80307; 81001; 82140; 82330; 82805; 82962; 83605; 84443; 84484; 85025; 87040; 93005; 96361; 96374; 96375; 96376; 99285; J2060; J3490; J7030; J7042

== ENCOUNTER 2024-08-11 09:10 | Emergency (ER) | payer MEDICARE, OTHER, SELFPAY ==
[2024-08-11 09:25] VITALS: BP 160/103; PULSE 82; RESP 16; TEMP 36.9; O2SAT 96; BMI 26.6
[2024-08-11 09:43] LABS: Eosinophils # 0.1 10^3/uL (0.0-0.8); Eosinophils % 2.4 %; Hematocrit 36.9 % (36-47); Lymphocytes # 0.6 10^3/uL (0.8-4.8); Lymphocytes % 18.9 %; Mean Corpuscular HGB Conc 30.9 g/dL (30-55); Mean Corpuscular Hemoglobin 27.9 pg (27-33); Mean Corpuscular Volume 90.4 fl (85-98); Mean Platelet Volume 10.9 fL (7.4-10.4); Monocytes # 0.5 10^3/uL (0.2-0.9); Monocytes % 17.2 %; Neutrophils # 1.82 10^3/uL (1.8-7.7); Neutrophils % 61.5 %; Nucleated Red Blood Cells % 0 %; Platelet Count 211 10^3/cmm (157-399); Red Blood Count 4.08 10^6/uL (3.85-5.65); Red Cell Distribution Width 14.9 % (12.1-15.1); White Blood Count 2.96 10^3/uL (3.29-11.43)
--- NOTE | 2024-08-11 09:45 | W.ED.EXTPRO ---
HPI - Extremity Problem General: Chief complaint: Extremity Problem,Nontraumatic Stated complaint: L&R leg swelling Time Seen by Provider: 08/11/24 09:12 History of Present Illness: 74-year-old female comes in complaining of leg swelling. She has had a little bit of orthopnea she denies any chest pain has a history of COPD. She put some diclofenac's on her legs thought topical thought that she had some increased swelling of the foot that is down now she still feels like there is swelling in her feet. Associated symptoms: Deny chest pain, fever(s) or rash Related Data Home Medications ?Medication ?Instructions ?Recorded ?Confirmed cyclobenzaprine 10 mg tablet 10 mg PO TID PRN Spasms 04/17/23 06/30/24 fluoxetine 20 mg capsule 20 mg PO BID 04/17/23 06/30/24 gabapentin 300 mg capsule 300 mg PO TID 04/17/23 06/30/24 hydrocodone 10 mg-acetaminophen 1 tab PO Q4H PRN Pain 04/17/23 06/30/24 325 mg tablet levothyroxine 112 mcg tablet 112 mcg PO QAM 04/17/23 06/30/24 lisinopril 20 mg tablet 20 mg PO DAILY 04/17/23 06/30/24 acyclovir 400 mg tablet 400 mg PO BID 06/30/24 06/30/24 fluticasone furoate 100 1 inh inhalation DAILY 06/30/24 06/30/24 mcg/actuation blister powder for inhalation (Arnuity Ellipta) hydromorphone 2 mg tablet See Rx Instructions .Route .COMPLEX 08/11/24 08/11/24 Previous Rx's ?Medication ?Instructions ?Recorded CAM walker #1 ea 06/25/20 albuterol sulfate 90 mcg/actuation 2 inh inhalation Q4H PRN shortness 05/15/24 aerosol inhaler of breath or wheezing #6.7 grams budesonide 180 mcg/actuation 1 inh inhalation BID #1 ea 05/15/24 breath activated powder inhaler furosemide 20 mg tablet (Lasix) 20 mg PO DAILY #7 tabs 08/11/24 potassium chloride 20 mEq 20 meq PO DAILY #7 tabs 08/11/24 tablet,extended release (K-Tab) Allergies Allergy/AdvReac Type Severity Reaction Status Date / Time No Known Allergies Allergy Verified 08/11/24 09:37 Review of Systems Const: Denies: fever(s) or chills Card: Denies: chest pain Resp: Denies: dyspnea GI: Denies: abdominal pain : Denies: dysuria, urinary frequency or urinary urgency Musc: Denies: neck pain or back pain Skin/Breast: Denies: rash PFSH ED PFSH: Medical History Recurrent UTI Normal colonoscopy Hypertension Chronic back pain Social History Smoking and tobacco/nicotine status: never used tobacco/nicotine Alcohol intake: never Physical Exam Const: COMMON NORMALS: no acute distress GENERAL APPEARANCE: cooperative and comfortable ORIENTATION/CONSCIOUSNESS: Yes awake, Yes oriented to person, Yes oriented to place and Yes oriented to time HENMT: COMMON NORMALS: normocephalic, atraumatic and hearing grossly normal bilaterally HEAD & SCALP: normocephalic and atraumatic Resp: COMMON NORMALS: normal respiratory effort, No retractions, No use of accessory muscles and clear to auscultation bilaterally AUSCULTATION: clear to auscultation bilaterally Cardio: COMMON NORMALS: regular rate, regular rhythm and No murmurs present (Cardio) RATE: regular rate RHYTHM: regular rhythm GI: COMMON NORMALS: Soft to palpation and No hepatosplenomegaly present AUSCULTATION: Yes normoactive bowel sounds PALPATION: Yes Soft to palpation, No Tenderness to palpation present (GI), No Guarding due to palpation present (GI) and Yes No hepatosplenomegaly present Extremity: COMMON NORMALS: normal to inspection, capillary refill normal, no clubbing, cyanosis or edema, no calf tenderness and no pedal edema Neuro: SENSORIUM/ORIENTATION: Yes oriented to person, Yes oriented to place and Yes oriented to time Skin: COMMON NORMALS: no rashes or lesions noted GENERAL SKIN EXAM: no rashes or lesions noted Course Vital Signs: Vital signs: Vital Signs Temperature 98.4 F 08/11/24 09:25 Pulse Rate 82 08/11/24 09:25 Respiratory Rate 16 08/11/24 09:25 Blood Pressure 160/103 08/11/24 09:25 Pulse Oximetry 96 08/11/24 09:25 Oxygen Delivery Me thod Room Air 08/11/24 09:25 MDM - Extremity (Nontraumatic) Medical Decision Making Will discharge home on Lasix 20 daily. Medical Records Patient given Lasix 40 mg here will discharge home on 20 mg daily for the next week also give potassium supplement 20 mill equivalents to take while she is on the Lasix. Noted to have some leukocytopenia. Will recommend that she follow-up with primary care in 1 week to recheck white count and check kidney function. She does have a little orthopnea at times some of this could be related to her COPD there seem to be a little bit increased vascularity on her chest x-ray we will set her up for a outpatient echocardiogram can follow-up with her chinese herbalist with that as well. Lab Data 08/11/24 09:33 08/11/24 09:33 Radiology Impressions Chest X-Ray 08/11/24 10:00 Impression: Atherosclerosis. Laboratory Results WBC 2.96 10^3/uL (3.29-11.43) L 08/11/24 09:33 RBC 4.08 10^6/uL (3.85-5.65) 08/11/24 09:33 Hgb 11.40 g/dL (11.27-16.99) 08/11/24 09:33 Hct 36.9 % (36-47) 08/11/24 09:33 MCV 90.4 fl (85-98) 08/11/24 09:33 MCH 27.9 pg (27-33) 08/11/24 09:33 MCHC 30.9 g/dL (30-55) 08/11/24 09:33 RDW 14.9 % (12.1-15.1) 08/11/24 09:33 Plt Count 211 10^3/cmm (157-399) 08/11/24 09:33 MPV 10.9 fL (7.4-10.4) H 08/11/24 09:33 Neut % (Auto) 61.5 % 08/11/24 09:33 Lymph % (Auto) 18.9 % 08/11/24 09:33 Green % (Auto) 17.2 % 08/11/24 09:33 Eos % (Auto) 2.4 % 08/11/24 09:33 Baso % (Auto) 0.0 % 08/11/24 09:33 Neut # (Auto) 1.82 10^3/uL (1.8-7.7) 08/11/24 09:33 Lymph # (Auto) 0.6 10^3/uL (0.8-4.8) L 08/11/24 09:33 Green # (Auto) 0.5 10^3/uL (0.2-0.9) 08/11/24 09:33 Eos # (Auto) 0.1 10^3/uL (0.0-0.8) 08/11/24 09:33 Baso # (Auto) 0.0 10^3/uL (0.0-0.1) 08/11/24 09:33 Nucleated RBC % (auto) 0 % 08/11/24 09: Nucleated RBCs # 0.0 /100WBC 08/11/24 09:33 Sodium 140 mmol/L (136-145) 08/11/24 09:33 Potassium 4.3 mmol/L (3.5-5.1) 08/11/24 09:33 Chloride 103 mmol/L (98-107) 08/11/24 09:33 Carbon Dioxide 26 mmol/L (22-29) 08/11/24 09:33 Anion Gap 15.3 (5-19) 08/11/24 09:33 BUN 12 mg/dL (8-23) 08/11/24 09:33 Creatinine 0.9 mg/dL (0.5-0.9) 08/11/24 09:33 GFR Calculation Not Reportable 08/11/24 09:33 Glucose 106 mg/dL (65-115) 08/11/24 09:33 Calculated Osmolality 290 mOsm/kg (285-295) 08/11/24 09:33 Calcium 8.7 mg/dL (8.5-10.5) 08/11/24 09:33 Total Bilirubin 0.2 mg/dL (0.15-1.2) 08/11/24 09:33 AST 20 U/L (0-32) 08/11/24 09:33 ALT 10 U/L (0-33) 08/11/24 09:33 Alkaline Phosphatase 88 U/L (35-105) 08/11/24 09:33 Total Protein 5.9 g/dL (6.6-8.7) L 08/11/24 09:33 Albumin 3.9 g/dL (3.5-5.2) 08/11/24 09:33 Globulin 2.0 g/dL (1.3-4.6) 08/11/24 09:33 All radiology interpretation(s) finalized by discharge Discharge Plan Discharge Patient Disposition: Home Clinical Impression: Leg edema, Leukocytopenia, unspecified Condition: Stable Prescriptions: New furosemide [Lasix] 20 mg tablet 20 mg PO DAILY Qty: 7 0RF potassium chloride [K-Tab] 20 mEq tablet extended release 20 meq PO DAILY Qty: 7 0RF No Action (DME) CAM walker See Rx Instructions .Route .MEDSUPPLY Qty: 1 0RF Rx Instructions: As directed albuterol sulfate 90 mcg/actuation HFA aerosol inhaler 2 inh inhalation Q4H PRN (Reason: shortness of breath or wheezing) Qty: 6.7 0RF budesonide 180 mcg/actuation aerosol powdr breath activated 1 inh inhalation BID Qty: 1 0RF cyclobenzaprine 10 mg tablet 10 mg PO TID PRN (Reason: Spasms) lisinopril 20 mg tablet 20 mg PO DAILY hydrocodone-acetaminophen 10-325 mg tablet 1 tab PO Q4H PRN (Reason: Pain) gabapentin 300 mg capsule 300 mg PO TID fluoxetine 20 mg capsule 20 mg PO BID levothyroxine 112 mcg tablet 112 mcg PO QAM hydromorphone 2 mg tablet See Rx Instructions .ROUTE .COMPLEX Rx Instructions: TAKE 1/2 TO 1 TABLET by mouth EVERY 4-6 HOURS NEEDED FOR SEVERE PAIN. MAX 3/DAY. HOLD WITHIN 4 HR OF SLEEP acyclovir 400 mg tablet 400 mg PO BID Arnuity Ellipta 100 mcg/actuation blister with device 1 inh INHALATION DAILY Discharge Orders: Discharge ED (Routine); Ordered 08/11/24 Ordered By: Ángel Saravia Referrals: Caroline Avilez, PHOTOGRAMMETRIC STEREO COMPILER [Primary Care Provider] - Discharge Diet: Low Salt Discharge Activity: Increase activity as tolerated Patient Instructions: Opioid Safety, Pain Management Activity Restrictions/Additional Instructions: Thank you for choosing [facility] for your healthcare needs today. It is very important that you follow up as instructed or that you return to the Emergency Department should you have concerns or if your condition changes or worsens in any way. You are seen emergency room complaints of swelling in her legs. You were given a dose of Lasix in the emergency room recommend oral Lasix once a day for a week. You are also given a potassium supplement to take while you are taking the Lasix. Will set you up for an outpatient echocardiogram. It was also noticed that your white count was slightly low today. This should be followed up with your primary care doctor in the office within a week. Print Language: Mongolian Coding Level of Care Code ED Boil[employer]aker Loftsman for Radhika Linda
[2024-08-11 10:00] LABS: Alanine Aminotransferase 10 U/L (0-33); Albumin Level 3.9 g/dL (3.5-5.2); Alkaline Phosphatase 88 U/L (35-105); Anion Gap 15.3 (5-19); Aspartate Amino Transferase 20 U/L (0-32); Blood Urea Nitrogen 12 mg/dL (8-23); Calcium 8.7 mg/dL (8.5-10.5); Carbon Dioxide 26 mmol/L (22-29); Chloride 103 mmol/L (98-107); Creatinine Clr Calc Pharmacy 57.5803; Glucose 106 mg/dL (65-115); Osmolality Calculated 290 mOsm/kg (285-295); Potassium 4.3 mmol/L (3.5-5.1); Sodium 140 mmol/L (136-145); Total Bilirubin 0.2 mg/dL (0.15-1.2); Total Protein 5.9 g/dL (6.6-8.7)
--- NOTE | 2024-08-11 10:00 | XR_ITS ---
WS: [id number] Portable AP upright chest, 08/11/2024 Clinical Data: dyspnea Comparison: Portable chest, 06/30/2024 Findings: No nodules, masses or effusions are seen. The heart is normal. The pulmonary vascularity is not increased. No pneumonia or pneumothorax is seen. The aortic arch and descending thoracic aorta show calcification and mild tortuosity. There are calcifications overlying the right humeral head which may represent calcific bursitis and/or tendinitis. XR/XR chest 1V portable [id number] Impression: Atherosclerosis.
[2024-08-11] MEDS: FUROsemide 10 mg/mL SDV 4mL 40 MG IVP (10:33)
[2024-08-11 10:39] VITALS: BP 167/92; PULSE 76; O2SAT 95
--- NOTE | 2024-08-11 12:26 | DCPLANNER ---
faxed outpatient echo order to scheduling
== END 2024-08-11 10:41 | disposition home or self-care (01) ==
PROVIDERS: Emergency Provider Family Medicine; PCP Nurse Practitioner Family
DX: R60.0 Localized edema (principal); D72.819 Decreased white blood cell count, unspecified; I10 Essential (primary) hypertension
CPT/HCPCS: 36415; 71045; 80053; 85025; 96374; 99284; J1940

== ENCOUNTER 2024-08-16 09:53 | Outpatient (CLI) | payer MEDICARE, OTHER, SELFPAY ==
--- NOTE | 2024-08-16 09:59 | USCV_ITS ---
Izabel Guillen Age: 74 Gender: F : 1950 Exam Date: 08/16/2024 10:09 Ordering Phys: Ángel Saravia DO Technologist: BAYLEE Exam Location: [facility] [place] Indication: LE Edema BP: 130 / 80 HR: 80 Rhythm: Sinus Technical Quality: Adequate MEASUREMENTS (Male / Female) Normal Values 2D ECHO LV Diastolic Diameter PLAX 4.1 cm 4.2 - 5.9 / 3.9 - 5.3 cm IVS Diastolic Thickness 1.1 cm 0.6 - 1.0 / 0.6 - 0.9 cm IVS Systolic Thickness 1.0 cm LVPW Diastolic Thickness 1.0 cm 0.6 - 1.0 / 0.6 - 0.9 cm LVPW Systolic Thickness 1.3 cm LVOT Diameter 1.9 cm LV Ejection Fraction 2D Teich 58.2 % LV Ejection Fraction MOD 4C 74.4 % LV Ejection Fraction MOD 2C 73.4 % LV Ejection Fraction 2C AL 73.6 % LA Diameter 2.7 cm RA Systolic Volume 4C AL 20.1 ml RA Systolic Volume 4C MOD 19.6 ml LA Sys Volume AL 47.1 cm cubed LA Sys Volume Index AL 25.3 cm cubed/m squared Aorta at Sinotubular Diameter 2.6 cm IVC Diameter 1.7 cm M-MODE LA Ao Ratio MM 1.4 AV Cusp Separation MM 1.3 cm DOPPLER AV Peak Velocity 188.0 cm/s LVOT Peak Velocity 113.0 cm/s AV Area Cont Eq vti 2.0 cm squared AV Area Cont Eq pk 1.7 cm squared MV Peak Velocity 125.0 cm/s MV Area PHT 3.2 cm squared Mitral E to A Ratio 0.8 TV Peak Velocity 284.0 cm/s TR Peak Velocity 377.0 cm/s TR Peak Gradient 56.9 mmHg TV Peak E Velocity 69.0 cm/s PV Peak Velocity 134.0 cm/s FINDINGS Left Ventricle Normal left ventricular size, systolic function and wall thickness, with no regional wall motion abnormalities. Left ventricular ejection fraction is estimated at 60 %. Grade I/IV diastolic dysfunction (abnormal relaxation filling pattern), normal to mildly elevated filling pressures. Right Ventricle The right ventricle is normal in size and function. Right Atrium The right atrium is normal in size. Left Atrium The left atrium is normal in size. Mitral Valve Structurally normal mitral valve without significant stenosis or prolapse. There is no mitral regurgitation. Aortic Valve Structurally normal aortic valve without significant sclerosis or stenosis. There is no aortic regurgitation. Tricuspid Valve Structurally normal tricuspid valve without significant stenosis or regurgitation. Pulmonary artery systolic pressure is normal. Pulmonic Valve Structurally normal pulmonic valve without significant stenosis. There is no pulmonic regurgitation. Pericardium Normal pericardium without effusion. Aorta Normal ascending aorta dimension. IVC The inferior vena cava appears normal. CONCLUSIONS Normal left ventricular size, systolic function and wall thickness, with no regional wall motion abnormalities. Left ventricular ejection fraction is estimated at 60 %. Grade I/IV diastolic dysfunction (abnormal relaxation filling pattern), normal to mildly elevated filling pressures. There is no pericardial effusion. No significant valve abnormalities. Right atrial pressure is around 5 mm of mercury. Bob Argueta MD (Electronically Signed) Final Date: 17 August 2024 19:25 S
== END 2024-08-16 09:54 | disposition home or self-care (01) ==
PROVIDERS: PCP Nurse Practitioner Family; Visit Provider Family Medicine
DX: R60.1 Generalized edema (principal); R60.0 Localized edema; I28.9 Disease of pulmonary vessels, unspecified; R93.1 Abnormal findings on diagnostic imaging of heart and coronary circulation
CPT/HCPCS: 93306

== ENCOUNTER 2024-08-26 13:12 | Outpatient (CLI) | payer MEDICARE, OTHER, SELFPAY ==
--- NOTE | 2024-08-26 13:13 | MM_ITS ---
WS: [id number] Bilateral screening 3D tomosynthesis digital mammogram, 08/26/2024 1:14 PM Clinical Data: SCREEN Comparison: 10/10/2021, 12/15/2019, 08/20/2017, 05/15/2015, 11/14/2013, 02/11/2011, 01/29/2011, 04/27/2009. Findings: No spiculated masses or clustered calcifications are seen. There are no secondary signs of carcinoma. MM/MM scr BI tomosynthesis [id number] Impression: Negative bilateral mammogram unchanged. Recommend annual screening mammograms. BIRADS: 1 - Negative. FOLLOW UP: 1 Year Follow-up DENSITY: There are scattered areas of fibroglandular density. The CAD supervisor food checkers and cashiers was used
== END 2024-08-26 13:13 | disposition home or self-care (01) ==
LOC: RAD 13:14
PROVIDERS: PCP Nurse Practitioner Family; Visit Provider Nurse Practitioner Family
DX: Z12.31 Encounter for screening mammogram for malignant neoplasm of breast (principal); R92.323 Mammographic fibroglandular density, bilateral breasts
CPT/HCPCS: 77063; 77067

== ENCOUNTER 2024-10-05 18:55 | Emergency (ER) | payer MEDICARE, OTHER, SELFPAY ==
[2024-10-05 19:01] VITALS: BP 153/78; PULSE 96; RESP 17; TEMP 36.6; O2SAT 99; BMI 23.8
--- NOTE | 2024-10-05 20:17 | XRR_ITS ---
PROCEDURE INFORMATION: Exam: XR Chest Exam date and time: 10/05/2024 8:41 PM Age: 74 years old Clinical indication: Other: Edema TECHNIQUE: Imaging protocol: Radiologic exam of the chest. Views: 1 view. COMPARISON: CR XR chest 1V portable [id number] 08/11/2024 10:07 AM FINDINGS: Lungs: Unremarkable. No consolidation. Pleural spaces: Unremarkable. No pleural effusion. No pneumothorax. Heart/Mediastinum: Unremarkable. No cardiomegaly. Bones/joints: Calcific tendinitis involving the right shoulder. XR/XR chest 1V portable [id number] IMPRESSION: No acute findings.
[2024-10-05 20:42] LABS: Basophils % 0.7 %; Eosinophils # 0.2 10^3/uL (0.0-0.8); Eosinophils % 3.4 %; Hematocrit 35.6 % (36-47); Lymphocytes # 1.4 10^3/uL (0.8-4.8); Lymphocytes % 30.9 %; Mean Corpuscular HGB Conc 31.2 g/dL (30-55); Mean Corpuscular Hemoglobin 27.8 pg (27-33); Mean Corpuscular Volume 89.2 fl (85-98); Monocytes # 0.6 10^3/uL (0.2-0.9); Monocytes % 14.6 %; Neutrophils % 50.4 %; Nucleated Red Blood Cells % 0 %; Platelet Count 260 10^3/cmm (157-399); Red Blood Count 3.99 10^6/uL (3.85-5.65); White Blood Count 4.37 10^3/uL (3.29-11.43)
[2024-10-05 20:49] VITALS: BP 160/80; PULSE 90; RESP 18; O2SAT 98
--- NOTE | 2024-10-05 20:52 | W.ED.EXTPRO ---
HPI - Extremity Problem General: Chief complaint: Extremity Problem,Nontraumatic Stated complaint: Both Legs and Feet are swollen Time Seen by Provider: 10/05/24 20:41 Source: patient History of Present Illness: Patient is a 74-year-old female who presents to the ER with primary complaint of swelling to her bilateral lower extremities. She states she has had swelling in her lower extremities in the past and was previously on a Lasix. She states she was on Lasix for about 7 years and had control of the swelling in her legs. She states about a month ago she was changed and taken off of the Lasix. She has had some increased swelling to her lower extremities. She is not sure of the name of the medication she is on now for swelling but does not think that she is not on any diuretics. She denies any leg or calf pain. No chest pain or shortness of breath. MD Complaint: extremity swelling Related Data Home Medications ?Medication ?Instructions ?Recorded ?Confirmed cyclobenzaprine 10 mg tablet 10 mg PO TID PRN Spasms 04/17/23 08/11/24 gabapentin 300 mg capsule 300 mg PO TID 04/17/23 08/11/24 hydrocodone 10 mg-acetaminophen 1 tab PO Q4H PRN Pain 04/17/23 08/11/24 325 mg tablet levothyroxine 112 mcg tablet 112 mcg PO QAM 04/17/23 08/11/24 lisinopril 20 mg tablet 20 mg PO DAILY 04/17/23 08/11/24 acyclovir 400 mg tablet 400 mg PO BID 06/30/24 08/11/24 fluticasone furoate 100 1 inh inhalation DAILY 06/30/24 08/11/24 mcg/actuation blister powder for inhalation (Arnuity Ellipta) benzonatate 200 mg capsule 200 mg PO TID PRN Cough 08/11/24 08/11/24 diclofenac sodium 1 % topical gel 4 g topical QID PRN Pain 08/11/24 08/11/24 escitalopram oxalate 10 mg tablet 10 mg PO DAILY 08/11/24 08/11/24 hydromorphone 2 mg tablet See Rx Instructions .Route .COMPLEX 08/11/24 08/11/24 promethazine 25 mg tablet 25 mg PO Q6H PRN Nausea And 08/11/24 08/11/24 Vomiting Previous Rx's ?Medication ?Instructions ?Recorded CAM walker #1 ea 06/25/20 albuterol sulfate 90 mcg/actuation 2 inh inhalation Q4H PRN shortness 05/15/24 aerosol inhaler of breath or wheezing #6.7 grams budesonide 180 mcg/actuation 1 inh inhalation BID #1 ea 05/15/24 breath activated powder inhaler furosemide 20 mg tablet (Lasix) 20 mg PO DAILY #7 tabs 08/11/24 potassium chloride 20 mEq 20 meq PO DAILY #7 tabs 08/11/24 tablet,extended release (K-Tab) furosemide 20 mg tablet (Lasix) 20 mg PO BID PRN edema #14 tabs 10/05/24 Allergies Allergy/AdvReac Type Severity Reaction Status Date / Time No Known Allergies Allergy Verified 10/05/24 19:04 [facility] ED PFSH: Medical History Recurrent UTI Normal colonoscopy Hypertension Chronic back pain Social History Smoking and tobacco/nicotine status: never used tobacco/nicotine Alcohol intake: never Physical Exam Const: COMMON NORMALS: no acute distress, average body habitus, alert and well nourished GENERAL APPEARANCE: cooperative ORIENTATION/CONSCIOUSNESS: Yes awake OTHER: Nontoxic 74-year-old female in no acute distress HENMT: COMMON NORMALS: normocephalic and atraumatic HEAD & SCALP: normocephalic and atraumatic Eye: COMMON NORMALS: conjunctivae normal CONJUNCTIVA: Yes conjunctivae normal Neck/C-Spine: GENERAL: Yes normal visual inspection Resp: COMMON NORMALS: normal respiratory effort, No retractions and No use of accessory muscles Cardio: COMMON NORMALS: regular rhythm and Peripheral pulses 2+ throughout RHYTHM: regular rhythm PERIPHERAL PULSES: Peripheral pulses 2+ throughout GI: COMMON NORMALS: Soft to palpation and non-tender PALPATION: Yes Soft to palpation Extremity: COMMON NORMALS: full ROM NARRATIVE EXTREMITY EXAM: Patient has 2+ bilateral pitting edema into the lower extremities. Palpable pedal pulses to the bilateral lower extremities. Neuro: COMMON NORMALS: no focal motor deficits SENSORIUM/ORIENTATION: Yes alert Skin: COMMON NORMALS: no rashes or lesions noted GENERAL SKIN EXAM: no rashes or lesions noted Course Vital Signs: Vital signs: Vital Signs Temperature 97.8 F 10/05/24 19:01 Pulse Rate 90 10/05/24 20:49 Respiratory Rate 18 10/05/24 20:49 Blood Pressure 160/80 10/05/24 20:49 Pulse Oximetry 98 10/05/24 20:49 Oxygen Delivery Me thod Room Air 10/05/24 19:01 MDM - Extremity (Nontraumatic) Medical Decision Making Patient is a 74-year-old female who presents with primary complaint of swelling to her lower extremities. She denies any leg pain or discomfort. No chest pain or shortness of breath. She has a history of pedal edema. She states she was previously controlled pretty well with Lasix however is not taking a diuretic any longer for what ever reason. She does have 2+ pitting edema to the bilateral lower extremities. She has palpable pedal pulses of the bilateral lower extremities. Chest x-ray shows some faint bibasilar atelectasis. No pneumonia or consolidation or evidence of significant fluid overload. CBC and CMP are unremarkable. She has minimal indeterminate elevated troponin. She denies any chest pain or shortness of breath whatsoever. I do not feel that a delta troponin would be of any significant benefit as this is a chronic issue and she states has been going on for over a week or so. Patient was given a dose of IV Lasix here. I will discharge her with a prescription for 7 days of Lasix and recommend she follow-up with her primary care provider to discuss further diuresis as necessary. Lab Data I reviewed the patient's lab results. 10/05/24 20:33 10/05/24 20:33 Laboratory Results WBC 4.37 10^3/uL (3.29-11.43) 10/05/24 20: RBC 3.99 10^6/uL (3.85-5.65) 10/05/24 20: Hgb 11.10 g/dL (11.27-16.99) L 10/05/24 20: Hct 35.6 % (36-47) L 10/05/24 20:33 MCV 89.2 fl (85-98) 10/05/24 20: MCH 27.8 pg (27-33) 10/05/24 20: MCHC 31.2 g/dL (30-55) 10/05/24 20: RDW 13.0 % (12.1-15.1) 10/05/24 20: Plt Count 260 10^3/cmm (157-399) 10/05/24 20: MPV 10.0 fL (7.4-10.4) 10/05/24 20: Neut % (Auto) 50.4 % 10/05/24 20: Lymph % (Auto) 30.9 % 10/05/24 20: Sac % (Auto) 14.6 % 10/05/24 20: Eos % (Auto) 3.4 % 10/05/24 20: Baso % (Auto) 0.7 % 10/05/24: Neut # (Auto) 2.20 10^3/uL (1.8-7.7) 10/05/24 20: Lymph # (Auto) 1.4 10^3/uL (0.8-4.8) 10/05/24 20: Sac # (Auto) 0.6 10^3/uL (0.2-0.9) 10/05/24 20: Eos # (Auto) 0.2 10^3/uL (0.0-0.8) 10/05/24 20: Baso # (Auto) 0.0 10^3/uL (0.0-0.1) 10/05/24 20: Nucleated RBC % (auto) 0 % 10/05/24: Nucleated RBCs # 0.0 /100WBC 10/05/24 20: Sodium 136 mmol/L (136-145) 10/05/24 20: Potassium 3.8 mmol/L (3.5-5.1) 10/05/24 20: Chloride 98 mmol/L (98-107) 10/05/24 20: Carbon Dioxide 28 mmol/L (22-29) 10/05/24 20: Anion Gap 13.8 (5-19) 10/05/24 20: BUN 23 mg/dL (8-23) 10/05/24 20: Creatinine 1.1 mg/dL (0.5-0.9) H 10/05/24 20:33 GFR Calculation Not Reportable 10/05/24 20: Glucose 150 mg/dL (65-115) H 10/05/24 20:33 Calculated Osmolality 289 mOsm/kg (285-295) 10/05/24 20:33 Calcium 9.6 mg/dL (8.5-10.5) 10/05/24 20:33 Total Bilirubin 0.2 mg/dL (0.15-1.2) 10/05/24 20:33 AST 52 U/L (0-32) H 10/05/24 20:33 ALT 31 U/L (0-33) 10/05/24 20:33 Alkaline Phosphatase 90 U/L (35-105) 10/05/24 20:33 Troponin T Baseline 17 ng/L (0-10) H 10/05/24 20:33 NT-Pro-B Natriuret Pep 146 pg/mL (0-125) H 10/05/24 20:33 Total Protein 7.0 g/dL (6.6-8.7) 10/05/24 20:33 Albumin 4.3 g/dL (3.5-5.2) 10/05/24 20:33 Globulin 2.7 g/dL (1.3-4.6) 10/05/24 20:33 XR interpretation done by ED provider, pending radiology final review ED provider radiology interpretation(s): Chest x-ray with bibasilar atelectasis, no consolidation or pneumonia, no overt fluid overload. Discharge Plan Discharge Patient Disposition: Home Clinical Impression: Lower extremity edema Condition: Stable Prescriptions: New furosemide [Lasix] 20 mg tablet 20 mg PO BID PRN (Reason: edema) Qty: 14 0RF No Action (DME) NUBIA shah See Rx Instructions .Route .MEDSUPPLY Qty: 1 0RF Rx Instructions: As directed albuterol sulfate 90 mcg/actuation HFA aerosol inhaler 2 inh inhalation Q4H PRN (Reason: shortness of breath or wheezing) Qty: 6.7 0RF budesonide 180 mcg/actuation aerosol powdr breath activated 1 inh inhalation BID Qty: 1 0RF cyclobenzaprine 10 mg tablet 10 mg PO TID PRN (Reason: Spasms) lisinopril 20 mg tablet 20 mg PO DAILY hydrocodone-acetaminophen 10-325 mg tablet 1 tab PO Q4H PRN (Reason: Pain) gabapentin 300 mg capsule 300 mg PO TID levothyroxine 112 mcg tablet 112 mcg PO QAM hydromorphone 2 mg tablet See Rx Instructions .ROUTE .COMPLEX Rx Instructions: TAKE 1/2 TO 1 TABLET by mouth EVERY 4-6 HOURS NEEDED FOR SEVERE PAIN. MAX 3/DAY. HOLD WITHIN 4 HR OF SLEEP furosemide [Lasix] 20 mg tablet 20 mg PO DAILY Qty: 7 0RF potassium chloride [K-Tab] 20 mEq tablet extended release 20 meq PO DAILY Qty: 7 0RF escitalopram oxalate 10 mg tablet 10 mg PO DAILY benzonatate 200 mg capsule 200 mg PO TID PRN (Reason: Cough) promethazine 25 mg tablet 25 mg PO Q6H PRN (Reason: Nausea And Vomiting) diclofenac sodium 1 % gel 4 g TOPICAL QID PRN (Reason: Pain) acyclovir 400 mg tablet 400 mg PO BID Arnuity Ellipta 100 mcg/actuation blister with device 1 inh INHALATION DAILY Discharge Orders: Discharge ED (Routine); Ordered 10/05/24 Ordered By: Linden Cyr Referrals: Caroline Avilez, CLIENT FINANCE ANALYST [Primary Care Provider] - Discharge Diet: Low Salt Discharge Activity: Increase activity as tolerated Patient Instructions: Edema (ED), Opioid Safety, Pain Management Activity Restrictions/Additional Instructions: Take medication as directed. Keep your feet elevated above your heart to help with swelling in your legs and feet. Follow-up with your primary care provider for recheck in 3 to 5 days. Return to the ER for any new or worsening symptoms or any other concerns. Print Language: Chilean Coding Level of Care Code ED Auto Rental Clerk for Radhika Linda
[2024-10-05] MEDS: FUROsemide 10 mg/mL SDV 4mL 40 MG IVP (20:56)
[2024-10-05 21:03] LABS: Troponin(5th) Baseline 17 ng/L (0-10)
[2024-10-05 21:10] LABS: Alanine Aminotransferase 31 U/L (0-33); Albumin Level 4.3 g/dL (3.5-5.2); Alkaline Phosphatase 90 U/L (35-105); Anion Gap 13.8 (5-19); Aspartate Amino Transferase 52 U/L (0-32); Blood Urea Nitrogen 23 mg/dL (8-23); Calcium 9.6 mg/dL (8.5-10.5); Carbon Dioxide 28 mmol/L (22-29); Chloride 98 mmol/L (98-107); Creatinine Clr Calc Pharmacy 43.2486; Globulin 2.7 g/dL (1.3-4.6); Glucose 150 mg/dL (65-115); NT Pro B Type Natriuretic Pept 146 pg/mL (0-125); Osmolality Calculated 289 mOsm/kg (285-295); Potassium 3.8 mmol/L (3.5-5.1); Sodium 136 mmol/L (136-145); Total Bilirubin 0.2 mg/dL (0.15-1.2)
[2024-10-05 21:41] VITALS: BP 149/82; PULSE 83; O2SAT 98
--- NOTE | 2024-10-05 22:17 | ECG_ITS ---
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
== END 2024-10-05 21:35 | disposition home or self-care (01) ==
PROVIDERS: Emergency Medicine; Emergency Provider Student in an Organized Health Care Education/Training Program; PCP Nurse Practitioner Family
DX: R60.0 Localized edema (principal); I10 Essential (primary) hypertension
CPT/HCPCS: 36415; 71045; 80053; 83880; 84484; 85025; 93005; 96374; 99285; J1940

== ENCOUNTER 2024-10-10 22:23 | Emergency (ER) | payer MEDICARE, OTHER, SELFPAY ==
[2024-10-10 22:28] VITALS: BP 143/81; PULSE 85; RESP 18; TEMP 36.4; O2SAT 94; BMI 24.4
[2024-10-11] VITALS: BP 146/101; PULSE 88; RESP 16; O2SAT 95
--- NOTE | 2024-10-11 00:44 | PC.NURSE ---
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 Pt was in hallway near dictation room trying to expose herself to show physician bruising. Physician requested pt go to pt room and he will see her in there. During assessment pt was highly distraught. Pt began immediately undressing and pointing at various spots on her body the were causing pain Do you see that bruise?! Theres a bruise right there! Pt ultimately pulled pants around knees, took shirt off, and walked in circles pointing at different spots across her entire body for physician to assess. Multiple bruises in various stages of healing are present on bilateral arms, small bruise to right buttock. This RN stayed at bedside during the entirety of the exam.
--- NOTE | 2024-10-11 03:42 | ED_ITS ---
HPI - Extremity Problem General: Chief complaint: Extremity Problem,Nontraumatic Stated complaint: Swollen Feet and Legs\Fell Time Seen by Provider: 10/10/24 23:26 History of Present Illness: Patient is a generally well-appearing 74-year-old female seen for various pain complaints. She states that her treating physician recently discontinued her hydromorphone and now she only takes 510 mg hydrocortisone tablets daily. She states that without the hydromorphone, her pain is unbearable. She has pain from her head to her toes and states that the bruises she has on her forearms and thighs are unbearable. She is particularly worried about her left small toe which she states has excruciating pain in it despite no trauma to it or redness or warmth to imply infection. She would like relief of her pain. Related Data Home Medications ?Medication ?Instructions ?Recorded ?Confirmed cyclobenzaprine 10 mg tablet 10 mg PO TID PRN Spasms 1 06/17/22 08/11/24 gabapentin 300 mg capsule 300 mg PO TID 04/17/2308/11 hydrocodone 10 mg-acetaminophen 1 tab PO Q4H PRN Pain 04/17/23 08/11/24 325 mg tablet levothyroxine 112 mcg tablet 112 mcg PO QAM 04/17/23 0 08/11/24 lisinopril 20 mg tablet 20 mg PO DAILY 04/17/2307/17 acyclovir 400 mg tablet 400 mg PO BID 06/30/2408/11 fluticasone furoate 100 1 inh inhalation DAILY 06/3008/11/24 mcg/actuation blister powder for inhalation (Arnuity Ellipta) benzonatate 200 mg capsule 200 mg PO TID PRN Cough 08/11/24 diclofenac sodium 1 % topical gel 4 g topical QID PRN Pain 08/11/24 08/11/24 escitalopram oxalate 10 mg tablet 10 mg PO DAILY 08/1108/11/24 hydromorphone 2 mg tablet See Rx Instructions .Route . COMPLEX 08/11/24 08/11/24 promethazine 25 mg tablet 25 mg PO Q6H PRN Nausea And 08/11/24 08/11/24 Vomiting Previous Rx's ?Medication ?Instructions ?Recorded CAM alyssa #1 ea 06/25/20 albuterol sulfate 90 mcg/actuation 2 inh inhalation Q4 H PRN shortness 05/15/24 aerosol inhaler of breath or wheezing #6.7 g cecilia budesonide 180 mcg/actuation 1 inh inhalation BID #1 e a 05/15/24 breath activated powder inhaler furosemide 20 mg tablet (Lasix) 20 mg PO DAILY #7 tabs 08/11/24 potassium chloride 20 mEq 20 meq PO DAILY #7 tabs 07/17 01/06 tablet,extended release (K-Tab) furosemide 20 mg tablet (Lasix) 20 mg PO BID PRN edema #14 tabs 10/05/24 Allergies Allergy/AdvReac Type Severity Reaction Status Date / Time No Known Allergies Allergy Verified 10/05/24 19:04 PFSH ED PFSH: Medical History Recurrent UTI Normal colonoscopy Hypertension Chronic back pain Social History Smoking and tobacco/nicotine status: never used tobacco/nicotine Alcohol intake: never Physical Exam Const: COMMON NORMALS: no acute distress, patient oriented x3 and alert HENMT: COMMON NORMALS: normocephalic and atraumatic HEAD & SCALP: normocephalic and atraumatic Eye: COMMON NORMALS: Equal, round and reactive pupils present, EOMs intact bilaterally and no scleral icterus PUPIL: Yes Equal, round and reactive pupils present Resp: COMMON NORMALS: normal respiratory effort and No retractions Cardio: COMMON NORMALS: regular rate, regular rhythm and No murmurs present (Cardio) RATE: regular rate RHYTHM: regular rhythm GI: COMMON NORMALS: Normal to inspection, nondistended, normoactive bowel sounds present, Soft to palpation and non-tender PALPATION: Yes Soft to palpation Neuro: COMMON NORMALS: patient oriented x3 SENSORIUM/ORIENTATION: Yes alert Psych: OTHER: Anxious Skin: OTHER: Scattered mild bruises of the upper and lower extremities. All long bones palpated in all joints ranged with no obvious deformity or dislocation. Course Vital Signs: Vital signs: Vital Signs Temperature 97.6 F 10/10/24 22:28 Pulse Rate 88 10/11/24 00:00 Respiratory Rate 16 10/11/24 00:00 Blood Pressure 146/101 10/11/24 00:00 Pulse Oximetry 95 10/11/24 00:00 Oxygen Delivery Me thod Room Air 10/10/24 22:28 MDM - Extremity (Nontraumatic) Medical Decision Making In summary, patient is a 74-year-old female seen for various pain complaints. I discussed with her that I feel she is most likely suffering from opioid-induced hyperalgesia and that her various bruises do not require more than 50 mg of hydrocodone per day. I do not appreciate any other emergent process warranting further workup or imaging at this time. She would like specialty care for her small toe pain this referral was placed for podiatry. She will be discharged in stable condition with follow-up to primary care No radiology studies performed this visit Discharge Plan Discharge Patient Disposition: Home Clinical Impression: Opioid-induced hyperalgesia Condition: Stable Prescriptions: No Action (DME) NUBIA shah See Rx Instructions .Route .MEDSUPPLY Qty: 1 0RF Rx Instructions: As directed albuterol sulfate 90 mcg/actuation HFA aerosol inhaler 2 inh inhalation Q4H PRN (Reason: shortness of breath or wheezing) Qty: 6.7 0RF budesonide 180 mcg/actuation aerosol powdr breath activated 1 inh inhalation BID Qty: 1 0RF cyclobenzaprine 10 mg tablet 10 mg PO TID PRN (Reason: Spasms) lisinopril 20 mg tablet 20 mg PO DAILY hydrocodone-acetaminophen 10-325 mg tablet 1 tab PO Q4H PRN (Reason: Pain) gabapentin 300 mg capsule 300 mg PO TID levothyroxine 112 mcg tablet 112 mcg PO QAM hydromorphone 2 mg tablet See Rx Instructions .ROUTE .COMPLEX Rx Instructions: TAKE 1/2 TO 1 TABLET by mouth EVERY 4-6 HOURS NEEDED FOR SEVERE PAIN. MAX 3/DAY. HOLD WITHIN 4 HR OF SLEEP furosemide [Lasix] 20 mg tablet 20 mg PO DAILY Qty: 7 0RF potassium chloride [K-Tab] 20 mEq tablet extended release 20 meq PO DAILY Qty: 7 0RF escitalopram oxalate 10 mg tablet 10 mg PO DAILY benzonatate 200 mg capsule 200 mg PO TID PRN (Reason: Cough) promethazine 25 mg tablet 25 mg PO Q6H PRN (Reason: Nausea And Vomiting) diclofenac sodium 1 % gel 4 g TOPICAL QID PRN (Reason: Pain) furosemide [Lasix] 20 mg tablet 20 mg PO BID PRN (Reason: edema) Qty: 14 0RF acyclovir 400 mg tablet 400 mg PO BID Arnuity Ellipta 100 mcg/actuation blister with device 1 inh INHALATION DAILY Discharge Orders: Discharge ED (Routine); Ordered 10/11/24 Ordered By: Chau Riley Referrals: Caroline Avilez, DEVELOPMENTAL MATHEMATICS PROFESSOR [Primary Care Provider] - Ilir Echols DPM [Physician] - (left small toe pain) Discharge Diet: Usual diet Discharge Activity: Increase activity as tolerated Patient Instructions: Chronic Pain (ED), Opioid Safety, Pain Management Print Language: Scottish Coding Level of Care Code ED Habilitation Specialist for Radhika Linda
--- NOTE | 2024-10-12 08:14 | DCPLANNER ---
Patient scheduled for 10/17/24 @ 5469 Left message for patient to call and confirm appt. podiatry
== END 2024-10-11 00:59 | disposition home or self-care (01) ==
PROVIDERS: Emergency Provider Student in an Organized Health Care Education/Training Program; PCP Nurse Practitioner Family
DX: R20.8 Other disturbances of skin sensation (principal); I10 Essential (primary) hypertension
CPT/HCPCS: 99283; J9999

== ENCOUNTER 2024-10-18 09:07 | Emergency (ER) | payer MEDICARE, OTHER, SELFPAY ==
[2024-10-18 09:18] VITALS: BP 161/87; PULSE 100; RESP 16; TEMP 36.8; O2SAT 99
--- NOTE | 2024-10-18 09:23 | W.ED.GENADLT ---
HPI - General Adult General: Chief complaint: General Medical Stated complaint: R and L leg pain Time Seen by Provider: 10/18/24 09:11 History of Present Illness: 74-year-old female presents emergency room complaining of swelling in her legs bilateral and lower extremities. She has been on Lasix in the past she has had kidney issues in reviewing her chart she has had some mild acute kidney injury and discussing with her it sounds like her primary care took her off of scheduled Lasix for this reason she is concerned because she states she has swelling in her legs which she finds disconcerting. She has not had any chest pain she denies any orthopnea no shortness of breath no other symptoms. Associated symptoms: Deny chest pain, dyspnea or rash Related Data Home Medications ?Medication ?Instructions ?Recorded ?Confirmed cyclobenzaprine 10 mg tablet 10 mg PO TID PRN Spasms 04/17/23 08/11/24 gabapentin 300 mg capsule 300 mg PO TID 04/17/23 08/11/24 hydrocodone 10 mg-acetaminophen 1 tab PO Q4H PRN Pain 04/17/23 08/11/24 325 mg tablet levothyroxine 112 mcg tablet 112 mcg PO QAM 04/17/23 08/11/24 lisinopril 20 mg tablet 20 mg PO DAILY 04/17/23 08/11/24 acyclovir 400 mg tablet 400 mg PO BID 06/30/24 08/11/24 fluticasone furoate 100 1 inh inhalation DAILY 06/30/24 08/11/24 mcg/actuation blister powder for inhalation (Arnuity Ellipta) benzonatate 200 mg capsule 200 mg PO TID PRN Cough 08/11/24 08/11/24 diclofenac sodium 1 % topical gel 4 g topical QID PRN Pain 08/11/24 08/11/24 escitalopram oxalate 10 mg tablet 10 mg PO DAILY 08/11/24 08/11/24 hydromorphone 2 mg tablet See Rx Instructions .Route .COMPLEX 08/11/24 08/11/24 promethazine 25 mg tablet 25 mg PO Q6H PRN Nausea And 08/11/24 08/11/24 Vomiting Previous Rx's ?Medication ?Instructions ?Recorded CAM walker #1 ea 06/25/20 albuterol sulfate 90 mcg/actuation 2 inh inhalation Q4H PRN shortness 05/15/24 aerosol inhaler of breath or wheezing #6.7 grams budesonide 180 mcg/actuation 1 inh inhalation BID #1 ea 05/15/24 breath activated powder inhaler furosemide 20 mg tablet (Lasix) 20 mg PO DAILY #7 tabs 08/11/24 potassium chloride 20 mEq 20 meq PO DAILY #7 tabs 08/11/24 tablet,extended release (K-Tab) furosemide 20 mg tablet (Lasix) 20 mg PO BID PRN edema #14 tabs 10/05/24 furosemide 20 mg tablet (Lasix) 20 mg PO DAILY PRN edema #7 tabs 10/18/24 levofloxacin 500 mg tablet 500 mg PO DAILY 7 days #7 tabs 10/18/24 Allergies Allergy/AdvReac Type Severity Reaction Status Date / Time No Known Allergies Allergy Verified 10/05/24 19:04 Review of Systems Const: Denies: fever(s) or chills Card: Reports: edema and swelling of feet/ankles; Denies: chest pain Resp: Denies: dyspnea GI: Denies: abdominal pain : Denies: dysuria, urinary frequency or urinary urgency Musc: Denies: neck pain or back pain Skin/Breast: Denies: rash PFSH ED PFSH: Medical History Recurrent UTI Normal colonoscopy Hypertension Chronic back pain Social History Smoking and tobacco/nicotine status: never used tobacco/nicotine Alcohol intake: never Physical Exam Const: GENERAL APPEARANCE: cooperative ORIENTATION/CONSCIOUSNESS: Yes awake, Yes oriented to person, Yes oriented to place and Yes oriented to time HENMT: COMMON NORMALS: normocephalic, atraumatic and hearing grossly normal bilaterally HEAD & SCALP: normocephalic and atraumatic Resp: COMMON NORMALS: normal respiratory effort, No retractions and No use of accessory muscles AUSCULTATION: crackles Laterality: bilateral Cardio: COMMON NORMALS: regular rate, regular rhythm and No murmurs present (Cardio) RATE: regular rate RHYTHM: regular rhythm GI: COMMON NORMALS: Soft to palpation and No hepatosplenomegaly present AUSCULTATION: Yes normoactive bowel sounds PALPATION: Yes Soft to palpation, No Tenderness to palpation present (GI), No Guarding due to palpation present (GI) and Yes No hepatosplenomegaly present Extremity: COMMON NORMALS: normal to inspection, capillary refill normal and no calf tenderness OTHER: Trace edema lower extremities Neuro: SENSORIUM/ORIENTATION: Yes oriented to person, Yes oriented to place and Yes oriented to time Skin: COMMON NORMALS: no rashes or lesions noted GENERAL SKIN EXAM: no rashes or lesions noted Course Vital Signs: Vital signs: Vital Signs Temperature 98.2 F 10/18/24 09:18 Pulse Rate 69 10/18/24 10:42 Respiratory Rate 16 10/18/24 09:18 Blood Pressure 167/84 10/18/24 10:42 Pulse Oximetry 99 10/18/24 10:42 [facility] - General Adult Medical Decision Making Trace edema lower extremities there is no evidence of pitting edema only involves the feet at this point. Chest x-ray does show a left lower lobe pneumonia she does have some crackles on her lung exam by auscultation. Gave her Lasix for a few days 1 pill daily. Discussed with her concern of her kidney function this needs to be monitored closely she may not tolerate daily Lasix the degree of edema she has in her lower extremities is rather minor. Start oral antibiotics for the pneumonia noted on chest x-ray. Follow-up with primary care doctor within a week Medical Records I reviewed the patient's medical records. Lab Data I reviewed the patient's lab results. 10/18/24 09:35 10/18/24 09:35 Radiology Impressions Chest X-Ray 10/18/24 09:30 IMPRESSION: Probable subacute left lower lung pneumonitis as above. Laboratory Results WBC 3.99 10^3/uL (3.29-11.43) 10/18/24 09:35 RBC 3.68 10^6/uL (3.85-5.65) L 10/18/24 09:35 Hgb 10.30 g/dL (11.27-16.99) L 10/18/24 09:35 Hct 33.4 % (36-47) L 10/18/24 09:35 MCV 90.8 fl (85-98) 10/18/24 09:35 MCH 28.0 pg (27-33) 10/18/24 09:35 MCHC 30.8 g/dL (30-55) 10/18/24 09:35 RDW 13.3 % (12.1-15.1) 10/18/24 09:35 Plt Count 237 10^3/cmm (157-399) 10/18/24 09:35 MPV 9.8 fL (7.4-10.4) 10/18/24 09:35 Neut % (Auto) 57.6 % 10/18/24 09:35 Lymph % (Auto) 27.8 % 10/18/24 09:35 Morrow % (Auto) 11.0 % 10/18/24 09:35 Eos % (Auto) 2.8 % 10/18/24 09:35 Baso % (Auto) 0.8 % 10/18/24 09:35 Neut # (Auto) 2.30 10^3/uL (1.8-7.7) 10/18/24 09:35 Lymph # (Auto) 1.1 10^3/uL (0.8-4.8) 10/18/24 09:35 Morrow # (Auto) 0.4 10^3/uL (0.2-0.9) 10/18/24 09:35 Eos # (Auto) 0.1 10^3/uL (0.0-0.8) 10/18/24 09:35 Baso # (Auto) 0.0 10^3/uL (0.0-0.1) 10/18/24 09:35 Nucleated RBC % (auto) 0 % 10/18/24 09:35 Nucleated RBCs # 0.0 /100WBC 10/18/24 09:35 Sodium 140 mmol/L (136-145) 10/18/24 09:35 Potassium 4.7 mmol/L (3.5-5.1) 10/18/24 09:35 Chloride 103 mmol/L (98-107) 10/18/24 09:35 Carbon Dioxide 27 mmol/L (22-29) 10/18/24 09:35 Anion Gap 14.7 (5-19) 10/18/24 09:35 BUN 15 mg/dL (8-23) 10/18/24 09:35 Creatinine 1.1 mg/dL (0.5-0.9) H 10/18/24 09:35 GFR Calculation Not Reportable 10/18/24 09:35 Glucose 108 mg/dL (65-115) 10/18/24 09:35 Calculated Osmolality 291 mOsm/kg (285-295) 10/18/24 09:35 Calcium 9.1 mg/dL (8.5-10.5) 10/18/24 09:35 Total Bilirubin 0.2 mg/dL (0.15-1.2) 10/18/24 09:35 AST 39 U/L (0-32) H 10/18/24 09:35 ALT 30 U/L (0-33) 10/18/24 09:35 Alkaline Phosphatase 73 U/L (35-105) 10/18/24 09:35 NT-Pro-B Natriuret Pep 566 pg/mL (0-125) H 10/18/24 09:35 Total Protein 6.3 g/dL (6.6-8.7) L 10/18/24 09:35 Albumin 3.7 g/dL (3.5-5.2) 10/18/24 09:35 Globulin 2.6 g/dL (1.3-4.6) 10/18/24 09:35 All radiology interpretation(s) finalized by discharge Discharge Plan Discharge Patient Disposition: Home Clinical Impression: Left lower lobe pneumonia Condition: Stable Prescriptions: New levofloxacin 500 mg tablet 500 mg PO DAILY 7 Days Qty: 7 0RF furosemide [Lasix] 20 mg tablet 20 mg PO DAILY PRN (Reason: edema) Qty: 7 0RF No Action (DME) NUBIA shah See Rx Instructions .Route .MEDSUPPLY Qty: 1 0RF Rx Instructions: As directed albuterol sulfate 90 mcg/actuation HFA aerosol inhaler 2 inh inhalation Q4H PRN (Reason: shortness of breath or wheezing) Qty: 6.7 0RF budesonide 180 mcg/actuation aerosol powdr breath activated 1 inh inhalation BID Qty: 1 0RF cyclobenzaprine 10 mg tablet 10 mg PO TID PRN (Reason: Spasms) lisinopril 20 mg tablet 20 mg PO DAILY hydrocodone-acetaminophen 10-325 mg tablet 1 tab PO Q4H PRN (Reason: Pain) gabapentin 300 mg capsule 300 mg PO TID levothyroxine 112 mcg tablet 112 mcg PO QAM hydromorphone 2 mg tablet See Rx Instructions .ROUTE .COMPLEX Rx Instructions: TAKE 1/2 TO 1 TABLET by mouth EVERY 4-6 HOURS NEEDED FOR SEVERE PAIN. MAX 3/DAY. HOLD WITHIN 4 HR OF SLEEP furosemide [Lasix] 20 mg tablet 20 mg PO DAILY Qty: 7 0RF potassium chloride [K-Tab] 20 mEq tablet extended release 20 meq PO DAILY Qty: 7 0RF escitalopram oxalate 10 mg tablet 10 mg PO DAILY benzonatate 200 mg capsule 200 mg PO TID PRN (Reason: Cough) promethazine 25 mg tablet 25 mg PO Q6H PRN (Reason: Nausea And Vomiting) diclofenac sodium 1 % gel 4 g TOPICAL QID PRN (Reason: Pain) furosemide [Lasix] 20 mg tablet 20 mg PO BID PRN (Reason: edema) Qty: 14 0RF acyclovir 400 mg tablet 400 mg PO BID Arnuity Ellipta 100 mcg/actuation blister with device 1 inh INHALATION DAILY Discharge Orders: Discharge ED (Routine); Ordered 10/18/24 Ordered By: Ángel Saravia Referrals: Caroline Avilez, [employer] [Primary Care Provider, Nurse Practitioner] Discharge Diet: Usual diet Discharge Activity: Increase activity as tolerated Patient Instructions: Opioid Safety, Pain Management Activity Restrictions/Additional Instructions: Thank you for choosing [facility] for your healthcare needs today. It is very important that you follow up as instructed or that you return to the Emergency Department should you have concerns or if your condition changes or worsens in any way. You were seen in the emergency room with complaints of leg swelling. Your chest x-ray does show a small left lower lobe pneumonia started you on antibiotics for this 1 pill once a day for 7 days. On exam you are noted to have moderate edema of your lower extremities. Reviewing your past medical records shows that at times your kidney function has had significant drop off. Regular use of Lasix will cause this. Will give you a couple of days of oral Lasix however through the emergency department we do not manage these things on a long-term basis you will have to follow-up with your doctor for review of your medical issues and kidney function whether or not long-term regular Lasix would be appropriate. You may need further evaluation as well. Print Language: Kazakh Coding Level of Care Code ED Dish Carrier for Radhika Linda
--- NOTE | 2024-10-18 09:30 | XR_ITS ---
WS: [id number] XR chest 1V portable [id number] REASON FOR EXAM: dyspnea/cough FINDINGS: Moderate tortuosity and ectasia of the thoracic aorta with normal heart size. Calcified granulomatous disease bilaterally. There is hazy groundglass density and reticular interstitial opacity over the left costophrenic angle with partial obscuration of the left hemidiaphragm. In retrospect these findings are likely present on the previous examination of 10/05/2024. Mild thoracic scoliosis and moderate degenerative spondylosis of the thoracic spine. XR/XR chest 1V portable [id number] IMPRESSION: Probable subacute left lower lung pneumonitis as above.
[2024-10-18 09:52] LABS: Basophils % 0.8 %; Eosinophils # 0.1 10^3/uL (0.0-0.8); Eosinophils % 2.8 %; Hematocrit 33.4 % (36-47); Lymphocytes # 1.1 10^3/uL (0.8-4.8); Lymphocytes % 27.8 %; Mean Corpuscular HGB Conc 30.8 g/dL (30-55); Mean Corpuscular Volume 90.8 fl (85-98); Mean Platelet Volume 9.8 fL (7.4-10.4); Monocytes # 0.4 10^3/uL (0.2-0.9); Neutrophils % 57.6 %; Nucleated Red Blood Cells % 0 %; Platelet Count 237 10^3/cmm (157-399); Red Blood Count 3.68 10^6/uL (3.85-5.65); Red Cell Distribution Width 13.3 % (12.1-15.1); White Blood Count 3.99 10^3/uL (3.29-11.43)
[2024-10-18 10:21] LABS: Alanine Aminotransferase 30 U/L (0-33); Albumin Level 3.7 g/dL (3.5-5.2); Alkaline Phosphatase 73 U/L (35-105); Anion Gap 14.7 (5-19); Aspartate Amino Transferase 39 U/L (0-32); Blood Urea Nitrogen 15 mg/dL (8-23); Calcium 9.1 mg/dL (8.5-10.5); Carbon Dioxide 27 mmol/L (22-29); Chloride 103 mmol/L (98-107); Creatinine Clr Calc Pharmacy 43.5095; Globulin 2.6 g/dL (1.3-4.6); Glucose 108 mg/dL (65-115); NT Pro B Type Natriuretic Pept 566 pg/mL (0-125); Osmolality Calculated 291 mOsm/kg (285-295); Potassium 4.7 mmol/L (3.5-5.1); Sodium 140 mmol/L (136-145); Total Bilirubin 0.2 mg/dL (0.15-1.2); Total Protein 6.3 g/dL (6.6-8.7)
--- NOTE | 2024-10-18 10:40 | DCPLANNER ---
Scheduled podiatry appointment before discharge
[2024-10-18 10:42] VITALS: BP 167/84; PULSE 69; O2SAT 99
== END 2024-10-18 10:43 | disposition home or self-care (01) ==
PROVIDERS: Emergency Provider Family Medicine; PCP Nurse Practitioner Family
DX: J18.9 Pneumonia, unspecified organism (principal); I10 Essential (primary) hypertension
CPT/HCPCS: 36415; 71045; 80053; 83880; 85025; 99284

== ENCOUNTER → 2024-10-19 09:41 | Outpatient (BNVA) | payer MEDICARE, OTHER, SELFPAY | PROVIDERS: PCP Nurse Practitioner Family; Visit Provider Podiatrist Foot & Ankle Surgery | DX: M79.675 Pain in left toe(s) (principal); M79.672 Pain in left foot; M21.622 Bunionette of left foot | CPT/HCPCS: 73630; 99204 ==